=== PATIENT | female | born 1940 | race Caucasian/White ===

== ENCOUNTER 2016-08-22 15:03 | Emergency (ER) | payer MEDICARE ==
[~2016-08-22 15:03] MED LIST: ADV250INH IH; ALBU18HF INH; ALEN70TA2 PO; ASPI-973 PO; CALC-3 PO; HYDR25TA4 PO; LEVO112T4 PO; RANI300T4 PO; TIOT18CA3 IH; vit d PO
[2016-08-22 15:12] VITALS: BP 159/86; PULSE 77; RESP 20; O2SAT 97
--- NOTE | 2016-08-22 15:18 | ED.REPORT ---
HPI-Chest Pain 40 and Over Date of Service Aug 22, 2016 ED Provider: Estefanía Yee MD Patient is a 76 year old female with COPD who presents to the ED complaining of chest pain onset today when she was doing her hair a few hours ago. Her pain is sharp, midline, and exacerbated by R arm movement. Associated symptoms include L finger numbness. She denies SOB, nausea, fever, chills, cough, leg swelling, or any other symptoms. Nursing Notes Stated Complaint: CHEST PAIN Chief Complaint: Chest Pain Nursing Notes Reviewed: Yes Allergies: Coded Allergies: No Known Allergies (Unverified , 08/22/16) Scheduled ([vit d]) 2,000 MG PO DAILY Alendronate Sodium (Fosamax) 70 Mg Tablet 70 MG PO wkly Aspirin (Aspirin) 81 Mg Tablet 81 MG PO DAILY Calcium Carbonate/Vitamin D3 (Calcium 500+D Tablet Chew) 1 Each Tab.chew 1 EACH PO DAILY Fluticasone/Salmeterol (Advair 250-50 Diskus) 60 Puff/Inh Disk 1 PUFF IH BID Hydrochlorothiazide (Hydrochlorothiazide) 25 Mg Tablet 25 MG PO DAILY Levothyroxine (Levothyroxine) 112 Mcg Tablet 112 MCG PO DAILY Ranitidine (Ranitidine) 300 Mg Tablet 300 MG PO BID Tiotropium Conway (Spiriva) 18 Mcg Cap.w.dev 18 MCG IH DAILY Scheduled PRN Albuterol Sulfate (Ventolin HFA Inhaler) 200 Puff/18 Gm Inhaler 1 PUFF INH Q4 PRN PRN For Wheezing General Time Seen by MD: 15:17 Chief Complaint Chest pain Hx Obtained From: Patient Arrived By: Walk-in Sudden in Onset?: Yes Onset Occurred: 1 - 4 hours ago Symptom Duration: Since onset Similar Sx Previous: No Risk Factors )( CAD Risk Stratification SmokingNo Diabetes mellitus, No Hypertension, No Known CAD Risk factors reviewed )( TAD Risk Stratification No Hypertension, No Risk factors reviewed )( PE Risk Stratification No , No , No Previous DVT, No Previous PE, No Surgery Last 60 Days Risk factors reviewed Past Medical History Past Medical History diverticulitis hiatal hernia Reports: COPD, Denies: Hypertension Past Surgical History Spine surgery Smoking History Former Smoker Social History Other Social History: Review of Systems Constitutional: Denies: Chills, Fever Respiratory: Denies: Non-productive cough, Shortness of breath Cardiovascular: Reports: Chest pain, Denies: Edema GI: Denies: Nausea Musculoskeletal: Denies: Extremity swelling Neurologic: Reports: Numbness (L fingers ) Complete sys rev & neg: except as marked. Physical Exam Initial Vital Signs Vital Signs (First) Date Time Temp Pulse Resp B/P Pulse Ox O2 Delivery O2 Flow Rate FiO2 08/22/16 15:12 36.4 77 20 159/86 97 Room Air Initial VS: Reviewed, Vital signs abnormal Head / Eyes: Atraumatic, Normocephalic Skin: Warm, Dry Neurologic: Alert, Oriented, Nonfocal Psychiatric: Mood/affect normal, Behavior normal, Normal thought content General/Constitutional: Awake, Alert, Well developed Respiratory / Chest: No chest tenderness Wheezing / Retractions: Positive: Wheezing expiratory (Mild ) Decreased airation Cardiovascular: Heart rate NL, Regular rhythm, Peripheral circulation NL, Pulses = bilaterally Abdomen: Soft, Non-tender, No palpable mass Neck: No JVD Interpretation & Diagnostics Lab Results Interpretation Result Diagram: 08/22/16 1510 08/22/16 1510 Test 08/22/16 15:10 08/22/16 18:43 White Blood Count 5.9th/mm3 (3.8-10.1) Red Blood Count 5.06mil/mm3 (3.90-5.20) Hemoglobin 14.7g/dL (12.0-15.6) Hematocrit 44.7% (35.0-46.0) Mean Corpuscular Volume 88.3fL (81-100) Mean Corpuscular Hemoglobin 29.1pg (27.0-35.0) Mean Corpuscular Hemoglobin Concent 32.9% (32.0-37.0) Red Cell Distribution Width 12.9% (12.3-15.4) Platelet Count 430bil/L (150-400) Neutrophils (%) (Auto) 65.8% (40-74) Lymphocytes (%) (Auto) 17.5% (14-46) Monocytes (%) (Auto) 10.3% (4-12) Eosinophils (%) (Auto) 5.1% (0-5) Basophils (%) (Auto) 1.0% (0-3) Sodium Level 138mEq/L (134-144) Potassium Level 4.2mEq/L (3.5-5.2) Chloride Level 99mEq/L (97-108) Carbon Dioxide Level 25mmol/L (18-29) Blood Urea Nitrogen 16mg/dL (8-27) Creatinine 0.64mg/dL (0.57-1.00) Estimat Glomerular Filtration Rate 130mL/min (>59) Glucose Level 116mg/dL (60-99) Calcium Level 9.1mg/dL (8.5-10.1) Magnesium Level 2.0mg/dL (1.6-2.6) Total Bilirubin 0.2mg/dL (0.0-1.2) Aspartate Amino Transf (AST/SGOT) 21U/L (0-50) Alanine Aminotransferase (ALT/SGPT) 18U/L (0-32) Alkaline Phosphatase 72U/L (25-165) Total Protein 7.3g/dL (6.4-8.4) Albumin 4.2g/dL (3.4-5.0) Hold Matias Top Tube Received (Received) Troponin T < 0.010ug/L (0.0-0.011) ECG Interpretation ECG Interpretation: Sinus rate 73 normal intervals no acute ST,T changes PVC Time: 15:28 Interpreted by: ED physician X-Ray Chest Interpretation Chest Xray Interpretation: IMPRESSION: No acute pulmonary process. Dictated by: Katharina Zuniga M.D. on 08/22/2016 at 15:54 Approved by: Katharina Zuniga M.D. on 08/22/2016 at 15:56 View: Portable, 1 view Interpretation / Wet Read by: Interpret - Radiologist CT Chest Interpretation IMPRESSION: 1. No findings to suggest thoracic or abdominal aortic dissection. There is moderate thoracic and abdominal aortic atherosclerosis. 2. Lobulated pulmonary mass at the left lung base suspicious for neoplasm. Infection could also be considered in the appropriate differential. Of note, this may be amenable to percutaneous CT-guided biopsy; however the patient has severe centrilobular emphysema which markedly increases her risk of pneumothorax. This finding was discussed with the Pascale, the emergency room charge nurse at 5:05 PM on 08/22/16. 3. 4 mm and 6 mm right pulmonary nodules. Please see followup guidelines below. 4. Cholelithiasis. No findings to suggest choledocholithiasis or acute cholecystitis. 5. Bilateral intermediate density adrenal gland mass lesions. Differential considerations include neoplasm and atypical adrenal adenomas. Adrenal mass protocol CT or MRI is recommended to further characterize these findings. Fleischner Society criteria for SOLID lung nodule followup. Nodule size (mm)Low-risk patientHigh-risk [id number] follow-up neededFollow-up at 12 mo; if no change, no further follow-up>[id number] CT at 12 mo; if no change, no further follow-up needed.Initial follow-up CT at 6-12 mo, then 18-24 mo if no change. >6-8Initial follow-up CT at 6-12 mo, then 18-24 mo if no change. Initial follow-up CT at 3-6 mo, then 9-12 mo and 24 mo if no change. >8Follow-up CT at 3, 9, 24 mo. Or PET and/or biopsy.Same as for low-risk pts. Fleischner Society criteria for SUB-SOLID lung nodule followup. Solitary pure ground-glass nodules5 mm or lessNo followup needed. >5 mm3 mo follow-up CT to confirm persistence. Then annual CT for 3 years. Part-solid nodules3 mo follow-up CT to confirm persistence. If persistent with solid component <5 mm, annual CT for at least 3 years. If solid component is 5 mm or more, biopsy or surgical resection. Consider PET-CT for lesions > 10 mm. Multiple sub-solid nodulesPure ground glass nodules [address] at 2 and 4 years. Pure ground glass nodules >5 mm without dominant lesion. [address] to confirm persistence, then annual followup CT for at least 3 years. Dominant nodule(s) with part-solid or solid component. [address] to confirm persistence. If persistent, consider biopsy or surgical resection, donna if lesions have >5 mm solid component. Dictated by: Parris Mccloud M.D. on 08/22/2016 at 16:57 Approved by: Parris Mccloud M.D. on 08/22/2016 at 17:14 Study type: CT pulm angiogram Interpretation / Wet Read by: Interpret - Radiologist Re-Eval/Medical Decision Med Decision/Clinical Course The patient presents with atypical chest pain. Differential diagnoses considered were aortic dissection, coronary ischemia, pneumonia, esophageal spasm, and musculoskeletal pain. The patient's pain seemed to improve and her troponin remained negative. She has lung mass on CT. I explained her the need to follow-up and spoke with Dr. Felix was on-call for Dr. Sellers, they will make sure they follow up with the patient for further evaluation of the mass. Time of Eval: 17:58 Re-Evaluation/Progress Note: Rechecked patient. She is still having intermittent sharp chest pain. Discussed need for follow-up. Time of Eval: 19:38 Re-Evaluation/Progress Note: Discussed plan for discharge. Patient understands and agrees with plan. All questions addressed at this time. Consultation : Referral / Consult Name: Caryl Felix MD Call Returned at: 20:05 Note: Discussed patient's case with Dr. 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 Discussed need for follow up. Counseled Regarding: Diagnosis, Lab results, Need for follow-up, When/why to return to ED Discharge & Departure Primary Impression: Non-cardiac chest pain Additional Impression: Lung mass Disposition: Home Discharge Condition All VS Reviewed: Yes Condition: Improved Additional Instructions: Thank you for entrusting us with your care. Your lab results are reassuring. Follow up with your primary care provider to discuss the lung mass found upon imaging. Return to the emergency department if you experience shortness of breath, severe chest pain, or any new or worsening symptoms. Referrals: Mesfin Sellers MD (PCP) Scribe Attestation Portions of this note were transcribed by Teodoro Oates. I, Dr. Yee personally performed the history, physical exam and medical decision-making; I reviewed and confirmed the accuracy of the information in the transcribed note. Signed by: Teodoro Oates 08/22/16 193 copies to: Mesfin Sellers MD, Jena M MD Aug 22, 2016 15:18 TEODORO OATES Aug 22, 2016 15:30
[2016-08-22 15:19] LABS: EOSINOPHILS % (AUTO) 5.1 % (0-5); MONOCYTES % (AUTO) 10.3 % (4-12); Mean Corpuscular Hemoglobin 29.1 pg (27.0-35.0); Mean Corpuscular Volume 88.3 fL (81-100); NEUTROPHILS % (AUTO) 65.8 % (40-74); Platelet Count 430 bil/L (150-400)
[2016-08-22] MEDS ORDERED: HYDROmorphone 0.5 mg/0.5 mL iSecure Syringe IVPUSH ONE (15:30)
--- NOTE | 2016-08-22 15:57 | DRSVH ---
PROCEDURE: X-RAY CHEST ONE VIEW, PORTABLE ([id number]) INDICATIONS: cp TECHNIQUE: One view of the chest was acquired. COMPARISON: [facility], , CHEST 2VW, 04/01/2012, 11:57. FINDINGS: Surgical changes and devices: None. Lungs and pleura: No pleural effusions or pneumothorax. Lungs are clear. Mediastinum: Mediastinal contours appear normal. Heart size is normal. Bones and chest wall: No suspicious bony lesions. Overlying soft tissues appear unremarkable. IMPRESSION: No acute pulmonary process. Dictated by: Katharina Zuniga M.D. on 08/22/2016 at 15:54 Approved by: Katharina Zuniga M.D. on 08/22/2016 at 15:56
[2016-08-22 16:02] LABS: TROPONIN T < 0.010 ug/L (0.0-0.011)
[2016-08-22 16:08] VITALS: BP 126/66; PULSE 67; RESP 16; O2SAT 97
--- NOTE | 2016-08-22 17:16 | DRSVH ---
PROCEDURE: CT ANG CHEST/ABD W/WO CONTRAST ([id number]) INDICATIONS: sharp chest pain TECHNIQUE: Precontrast 5 mm thick sections acquired from the lung apices to the iliac crests. After the adminis tration of intravenous contrast, 3 mm thick sections again acquired from the lung apices to the iliac crests. 3-dimensional maximum intensity projection (MIP) oblique sagittal and coronal reformats wer e then acquired, and/or 3-dimensional volume rendering reformats. For radiation dose reduction, the following was used: automated exposure control. COMPARISON: [facility], CT, CHEST W/O CONTRAST, 03/05/2012, 16:12. FINDINGS: Image quality: Excellent. AORTA: Scattered atheromatous calcifications are present at the aortic arch. No dilatation of the ao rtic root. No ulceration or aneurysmal dilatation. No aortic dissection. No intramural hematoma. The descending thoracic aorta demonstrates normal course and caliber. CHEST: Lungs and pleura: There is severe centrilobular emphysema with an apical predominance. A 4 mm diamete r pulmonary nodule is present within the posterior aspect of the right upper lobe (series 7, image 22 ). A 6 mm diameter pulmonary nodule is present within the base of the right middle lobe (series 7, im age 74). A 2.5 x 2.1 x 3.0 cm lobulated mass is present at the left lung base (series 7, image 74). N o pleural effusion or pneumothorax. Mediastinum: Heart size is normal. No pericardial effusion. No mediastinal or hilar adenopathy by size criteria. Central pulmonary arteries are normal in size. Esophagus is normal in caliber. No h iatal hernias. Bones and chest wall: No axillary adenopathy by size criteria. Thyroid gland is unremarkable. No s uspicious bony lesions. No vertebral body compression fractures. 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 There is conventi onal hepatic arterial anatomy. The SMA is widely patent. The bilateral renal arteries are widely [place] nt. The LEO is patent. Scattered atheromatous calcifications are present throughout the abdominal aor ta and the proximal common iliac arteries. No aneurysmal dilatation or stenosis. Solid organs: Liver and spleen are normal in size. The gallbladder is partially filled with sludge a nd subcentimeter cholesterol stones. No gallbladder wall thickening or pericholecystic fluid. Biliary system is non dilated. Pancreas enhances normally. There is an intermediate density 2.3 x 4.0 cm le ft adrenal mass an intermediate density 1.9 x 1.2 cm right adrenal mass. Both kidneys are normal in s ize and enhancement, without hydronephrosis. Peritoneum and bowel: No free fluid or air. Bowel loops are normal in caliber and wall thickness. Nodes and vessels: No retroperitoneal or mesenteric adenopathy by size criteria. Inferior vena cava is normal in morphology. Bones: No suspicious bony lesions. No vertebral body compression fractures. Severe degenerative ch anges are present throughout the thoracolumbar spine. A severe wedge compression deformity is present at T12 this is unchanged from prior studies. Miscellaneous: No ventral hernias. IMPRESSION: 1. No findings to suggest thoracic or abdominal aortic dissection. There is moderate thoracic and abd ominal aortic atherosclerosis. 2. Lobulated pulmonary mass at the left lung base suspicious for neoplasm. Infection could also be co nsidered in the appropriate differential. Of note, this may be amenable to percutaneous CT-guided bio psy; however the patient has severe centrilobular emphysema which markedly increases her risk of pneu mothorax. This finding was discussed with the Pascale, the emergency room charge nurse at 5:05 PM on 08/22/16. 3. 4 mm and 6 mm right pulmonary nodules. Please see followup guidelines below. 4. Cholelithiasis. No findings to suggest choledocholithiasis or acute cholecystitis. 5. Bilateral intermediate density adrenal gland mass lesions. Differential considerations include catalina plasm and atypical adrenal adenomas. Adrenal mass protocol CT or MRI is recommended to further charac terize these findings. Fleischner Society criteria for SOLID lung nodule followup. Nodule size (mm)Low-risk patientHigh-risk [id number] follow-up neededFollow-up at 12 mo; if no aguayo e, no further follow-up>[id number] CT at 12 mo; if no change, no further follow-up needed.Initial f ollow-up CT at 6-12 mo, then 18-24 mo if no change. >6-8Initial follow-up CT at 6-12 mo, then 18-24 mo if no change. Initial follow-up CT at 3-6 mo, then 9-12 mo and 24 mo if no change. >8Follow-up CT at 3, 9, 24 mo. Or PET and/or biopsy.Same as for low-risk pts. Fleischner Society criteria for SUB-SOLID lung nodule followup. Solitary pure ground-glass nodules5 mm or lessNo followup needed. >5 mm3 mo follow-up CT to confirm persistence. Then annual CT for 3 years. Part-solid nodules3 mo follow-up CT to confirm persistence . If persistent with solid component <5 mm, annual CT for at least 3 years. If solid component is 5 mm or more, biopsy or surgical resection. Consider PET-CT for lesions > 10 mm. Multiple sub-solid nodulesPure ground glass nodules [address] at 2 and 4 years. Pure ground glass nodules >5 mm without dominant lesion. [address] to confirm persistence, then annual followup CT for at least 3 years. Dominant nodule(s) with part-solid or solid component. [address] to confirm persistence. If persistent, consider biopsy or surgical resection, donna if lesions have >5 m m solid component. Dictated by: Parris Mccloud M.D. on 08/22/2016 at 16:57 Approved by: Parris Mccloud M.D. on 08/22/2016 at 17:14
[2016-08-22 19:16] VITALS: BP 144/79; PULSE 76; RESP 12; O2SAT 95
[2016-08-22 19:47] VITALS: BP 144/79; PULSE 76; RESP 12; O2SAT 95
== END 2016-08-22 19:50 | disposition home or self-care (01) ==
LOC: SED 15:03
DX: R07.89 Other chest pain (principal); R91.8 Other nonspecific abnormal finding of lung field; R20.0 Anesthesia of skin; J44.9 Chronic obstructive pulmonary disease, unspecified; I10 Essential (primary) hypertension; Z79.82 Long term (current) use of aspirin; Z87.891 Personal history of nicotine dependence
CPT/HCPCS: 36415; 71010; 71275; 74175; 80053; 83735; 84484; 85025; 93005; 96374; 99285; J1170; Q9967

== ENCOUNTER 2016-09-25 20:07 | Inpatient (IN) | payer MEDICARE ==
[~2016-09-25] VITALS: Ht 154.9 cm; Wt 58.7 kg
[2016-09-25 20:10] VITALS: BP 141/72; PULSE 75; RESP 15; O2SAT 94
[2016-09-25] MEDS ORDERED: 0.9% Sodium Chloride 1,000 ML IV ONE ×2 (20:22→21:02)
[2016-09-25] MEDS ORDERED: Vancomycin Dose per Pharmacist XX ONE (20:25)
[2016-09-25] MEDS ORDERED: levoFLOXacin Inj 750 MG in IV Premix 1 EACH IV ONE (20:25)
[2016-09-25] MEDS ORDERED: Piperacillin-Tazo 3.375 Gm Inj 3.375 GM in Dextrose 5% Minibag Plus 50 ML IV ONE (20:25)
[2016-09-25] MEDS ORDERED: Vancomycin Inj 1,250 MG in 0.9% Sodium Chloride 250 ML IV ONE (20:30)
--- NOTE | 2016-09-25 20:33 | ED.REPORT ---
HPI-General Illness Date of Service Sep 25, 2016 ED Provider: Zachary Shaikh MD The patient is a 76 year female was sent over from urgent care where she presented with left-sided upper abdominal pain/chest pain. A CT abdomen/pelvis was obtained that demonstrated a left pulmonary abscess confirmed by chest x- ray. She was aware of this mass and had a PET scan taken 1 week ago. The patient was noted to be febrile with a leukocytosis of 20. The initial plan was for direct admission, however the hospitalist requested further evaluation in the ED. She has also experienced shortness of breath and a cough. She denies recent weight loss. She denies history of cardiac disease or cancer. Nursing Notes Stated Complaint: ABDOMINAL PAIN Chief Complaint: Female Abdominal Pain Nursing Notes Reviewed: Yes Allergies: Coded Allergies: No Known Allergies (Unverified , 08/22/16) Scheduled Alendronate Sodium (Fosamax) 70 Mg Tablet 70 MG PO WEEKLY SUNDAYS Aspirin (Aspirin) 81 Mg Tablet 81 MG PO QAM Cholecalciferol (Vitamin D3) (Vitamin D3) 2,000 Unit Tablet 2,000 UNIT PO QAM Fluticasone/Salmeterol (Advair 250-50 Diskus) 60 Puff/Inh Disk 1 PUFF IH BID Hydrochlorothiazide (Hydrochlorothiazide) 25 Mg Tablet 25 MG PO QAM Levothyroxine (Levothyroxine) 112 Mcg Tablet 112 MCG PO QAM Tiotropium [place] (Spiriva) 18 Mcg Cap.w.dev 18 MCG IH QAM Scheduled PRN Albuterol Sulfate (Ventolin HFA Inhaler) 200 Puff/18 Gm Inhaler 1 PUFF INH Q4 PRN PRN For Wheezing Calcium Carbonate (Tums) 500 Mg Tab.chew 500 MG PO TID PRN PRN For Dyspepsia or Heartburn Ibuprofen (Ibuprofen) 200 Mg Capsule 200-400 MG PO QID PRN PRN For Pain General Time Seen by MD: 20:20 Chief Complaint Abdominal pain Hx Obtained From: Patient Arrived By: Walk-in Sudden in Onset?: No Onset Occurred: 3 days ago Symptom Duration: Since onset Location: : Abdomen Quality: Painful Severity: Current: Moderate Severity: Maximum: Severe Recent Healthcare: No recent hospitalization, Recent doctor visit Similar Sx Previous: No Past Medical History Past Medical History Diverticulitis Hiatal hernia Reports: COPD Past Surgical History Spine surgery Family History Noncontributory Smoking History Former Smoker Social History Other Social History: , Local resident Ambulatory Status Independent Review of Systems Full Review of Systems Constitutional: Denies: Recent wt loss Respiratory: Reports: Prod cough, clear, Shortness of breath Cardiovascular: Reports: Chest pain GI: Reports: Abdominal pain Complete sys rev & neg: except as marked. Physical Exam Vital Signs Vital Signs Date Time Temp Pulse Resp B/P Pulse Ox O2 Delivery O2 Flow Rate FiO2 09/25/16 21:06 81 16 98 Nasal Cannula 2 09/25/16 20:10 36.1 75 15 141/72 94 Room Air Initial VS: Reviewed Head / Eyes: Atraumatic, Normocephalic, PERRL ENT: Mucous membranes moist, Conjunctiva normal, No scleral icterus Neck: Supple, Non-tender, Full range of motion Cardiovascular: Regular rate & rhythm, Heart sounds normal, Intact distal pulses Abdomen / GI: Soft, Non-tender, No guarding, No rebound, No distention Lymphatic: No lymphadenopathy Extremities: Vascular intact, Neuro intact, No swelling, No tenderness Skin: Warm, Dry, No cyanosis Neurologic: Alert, Oriented, Nonfocal Psychiatric: Mood/affect normal, Behavior normal, Normal thought content General/Constitutional: Awake, Alert, Cooperative Diminished Breath Sounds: Positive: Decreased bilateral Most diminished in the left lung base with crackles present. She is sating at 96 % on 2 L by nasal cannula. She has a moist hacking cough. Upper Extremities Upper Extremity / MS: Neurologic intact, Vascular intact No calf swelling or tenderness Interpretation & Diagnostics Lab Results Interpretation Result Diagram: 09/25/16203909/25/162039 Test 09/25/16 20:40 09/25/16 21:21 09/25/16 21:45 White Blood Count 23.4th/mm3 (3.8-10.1) Red Blood Count 4.60mil/mm3 (3.90-5.20) Hemoglobin 12.9g/dL (12.0-15.6) Hematocrit 40.2% (35.0-46.0) Mean Corpuscular Volume 87.4fL (81-100) Mean Corpuscular Hemoglobin 28.0pg (27.0-35.0) Mean Corpuscular Hemoglobin Concent 32.1% (32.0-37.0) Red Cell Distribution Width 12.9% (12.3-15.4) Platelet Count 643bil/L (150-400) Neutrophils (%) (Auto) 89.2% (40-74) Lymphocytes (%) (Auto) 2.9% (14-46) Monocytes (%) (Auto) 7.2% (4-12) Eosinophils (%) (Auto) 0% (0-5) Basophils (%) (Auto) 0.2% (0-3) Sodium Level 136mEq/L (134-144) Potassium Level 4.3mEq/L (3.5-5.2) Chloride Level 99mEq/L (97-108) Carbon Dioxide Level 20mmol/L (18-29) Blood Urea Nitrogen 17mg/dL (8-27) Creatinine 1.25mg/dL (0.57-1.00) Estimat Glomerular Filtration Rate 60mL/min (>59) Glucose Level 86mg/dL (60-99) Lactic Acid Level 1.1mmol/L (0.4-2.0) Calcium Level 10.1mg/dL (8.5-10.1) Total Bilirubin 0.3mg/dL (0.0-1.2) Aspartate Amino Transf (AST/SGOT) 16U/L (0-50) Alanine Aminotransferase (ALT/SGPT) 12U/L (0-32) Alkaline Phosphatase 50U/L (25-165) Troponin T 0.010ug/L (0.0-0.011) Total Protein 7.3g/dL (6.4-8.4) Albumin 4.5g/dL (3.4-5.0) Procalcitonin 0.26ng/mL (0.00-0.08) Prothrombin Time 11.4sec (8.1-12.5) Prothromb Time International Ratio 1.06ratio Urine Color Straw (YELLOW) Urine Appearance Clear (CLEAR,HAZY) Urine pH 7.5 (5.0-8.0) Urine Specific [place] 1.005 (1.003-1.035) Urine Protein Negativemg/dL (NEG,TRACE) Urine Glucose (UA) Negativemg/dL (NEGATIVE) Urine Ketones 15mg/dL (NEGATIVE) Urine Occult Blood Large (NEGATIVE) Urine Nitrite Negative (NEGATIVE) Urine Bilirubin Negative (NEGATIVE) Urine Urobilinogen Normalmg/dL (NORMAL) Urine Leukocyte Esterase Small (NEGATIVE) Urine RBC 3-10/hpf (0-2) Urine WBC 6-10/hpf (0-5) Urine Epithelial Cells Many/hpf (NONE-MOD) Urine Crystals None seen (NONE SEEN) Urine Bacteria None/hpf (NONE-FEW) Urine Hyaline Casts None/lpf (NONE) Urine Granular Casts None seen (NONE SEEN) Urine Waxy Casts None seen (NONE SEEN) Urine Red Blood Cell Casts None seen (NONE SEEN) Urine White Blood Cell Casts None seen (NONE SEEN) Urine Mucus None seen (None Seen) Urine Trichomonas None seen (NONE SEEN) Urine Yeast None (NONE SEEN) Urine Culture Reflexed Indicated X-Ray Chest Interpretation Chest Xray Interpretation: FROM URGENT CARE IMPRESSION: 1. Posterior left lung base opacity corresponds with CT findings of pneumonia with lung abscess. 2. Nonacute T12 vertebral body anterior wedge compression fracture as before. Dictated by: Johnny Bañuelos M.D. on 09/25/2016 at 19:02 Interpretation / Wet Read by: Interpret - Radiologist CT Abd / Pelvis Interpretation FROM URGENT CARE IMPRESSION: 1. Continued interval enlargement of previously noted posterior left lower lobe mass lesion with cystic center, at a rate greater than expected for typical neoplasm. In the setting of fevers, finding is therefore suspicious for pneumonia with lung abscess formation. 2. Bilateral adrenal adenomas as before, larger on the left. 3. Large retrocardiac hiatal hernia. 4. 3.8 cm calcified left uterine fibroid. 5. Nonacute T12 vertebral body anterior wedge compression fracture as before. Dictated by: Johnny Bañuelos M.D. on 09/25/2016 at 17:57 Interpretation / Wet Read by: Interpret - Radiologist Re-Eval/Medical Decision Med Decision/Clinical Course The patient is a 76 year female was sent over from urgent care where she presented with left-sided upper abdominal pain/chest pain. A CT abdomen/pelvis was obtained that demonstrated a left pulmonary abscess confirmed by chest x- ray. She was aware of this mass and had a PET scan taken 1 week ago and was previously being worked up for malignancy until today at which time her clinical picture came more consistent with abscess. The patient was noted to be febrile with a leukocytosis of 20. The initial plan was for direct admission, however the hospitalist requested further evaluation in the ED. She has also experienced shortness of breath and a cough. She denies recent weight loss. She denies history of cardiac disease or cancer. Here in the emergency department the patient is requiring 2-4 L of supplemental oxygen by nasal cannula. She is afebrile after receiving ibuprofen at urgent care and is hemodynamically stable. I reviewed the patient's CT scan of the abdomen obtained earlier today at urgent care as below: IMPRESSION: 1. Continued interval enlargement of previously noted posterior left lower lobe mass lesion with cystic center, at a rate greater than expected for typical neoplasm. In the setting of fevers, finding is therefore suspicious for pneumonia with lung abscess formation. 2. Bilateral adrenal adenomas as before, larger on the left. 3. Large retrocardiac hiatal hernia. 4. 3.8 cm calcified left uterine fibroid. 5. Nonacute T12 vertebral body anterior wedge compression fracture as before. CXR: 1. Posterior left lung base opacity corresponds with CT findings of pneumonia with lung abscess. 2. Nonacute T12 vertebral body anterior wedge compression fracture as before. LABS: leukocytosis 23.4, CBC otherwise unremarkable, creatinine elevated at 1.25 , CMP otherwise unremarkable, lactate 1.1, procalcitonin 0.26, coags nl, UA equivocal for UTI - sent for culture 2 sets of blood cultures were obtained and the patient was started on broad- spectrum antibiotics with IV Zosyn, vancomycin and ceftriaxone. He should have quite a bit of wheezing and poor air movement throughout both lung cook consistent with COPD exacerbation and was treated with 2 [id number] DuoNeb. She reported subjective improvement. Patient has been admitted to the hospitalist service for further workup and management of her pulmonary abscess. She remains nontoxic in appearance at this time was transferred in stable condition. The patient will need a dedicated CT scan of the chest to further characterize the pulmonary abscess however given her acute kidney injury and having already received a contrast load earlier today we have opted to defer this study for the moment. Source of Hx: Old records Time of Eval: 21:30 Re-Evaluation/Progress Note: Discussed plan for admission. Consultation : Referral / Consult Name: Keely Abdi DO Consulted With: Hospitalist Call Returned at: 21:49 Seat Joiner: Will see patient, Agrees with eval, Agrees with plan, Accepts admit Counseled Regarding: Diagnosis, Lab results, Need for admission Discharge & Departure Primary Impression: Pulmonary abscess Pulmonary abscess pneumonia presence: with pneumonia Laterality: left Lung location: unspecified part of lung Qualified Code: J85.1 - Abscess of lung with pneumonia Additional Impressions: COPD exacerbation Hypoxia Leukocytosis Leukocytosis type: unspecified Qualified Code: D72.829 - Elevated white blood cell count, unspecified Acute kidney injury Disposition: ADMITTED TO HOSPITAL Discharge Condition All VS Reviewed: Yes Condition: Stable Referrals: Mesfin Sellers MD (PCP) Crit Care Except Billable Proc Time Spent: 105-134 minutes Services Performed: Patient management by me, Time spent at bedside, Reviewing test results, Reviewing imaging, Discussing patient care, Documentation in record, Time with fam/surrogate Scribe Attestation Portions of this note were transcribed by Carolyn Cooley. I, Dr. Shaikh personally performed the history, physical exam and medical decision-making; I reviewed and confirmed the accuracy of the information in the transcribed note. Signed by: Yu Fernandez, 09/25/2016 at 2300. copies to: Mesfin Sellers MD, Beck O MD Sep 25, 2016 20:33 Carolyn Cooely Sep 25, 2016 20:39
[2016-09-25] MEDS ORDERED: Albuterol-Ipratropium 3 mL Inhalation Solution NEB ONE ×2 (20:45→21:05)
[2016-09-25] MEDS ORDERED: Ondansetron 2 mg/mL 2 mL Inj IVPUSH PRN (21:05)
[2016-09-25 21:06] VITALS: PULSE 81; RESP 16; O2SAT 98
[2016-09-25 21:15] LABS: BASOPHILS % (AUTO) 0.2 % (0-3); EOSINOPHILS % (AUTO) 0 % (0-5); MONOCYTES % (AUTO) 7.2 % (4-12); Mean Corpuscular Volume 87.4 fL (81-100); NEUTROPHILS % (AUTO) 89.2 % (40-74); Platelet Count 643 bil/L (150-400)
[2016-09-25] MEDS ORDERED: CHOL200025 PO (21:18)
[2016-09-25] MEDS ORDERED: IBUP200C PO (21:19)
[2016-09-25] MEDS ORDERED: CALC500T9 PO (21:19)
[2016-09-25] MEDS ORDERED: HYDROmorphone 0.5 mg/0.5 mL iSecure Syringe IVPUSH ONE (21:35)
[2016-09-25 21:40] LABS: TROPONIN T 0.01 ug/L (0.0-0.011)
[2016-09-25 21:46] LABS: INR 1.06 ratio
[2016-09-25 22:04] VITALS: BP 135/54; PULSE 81; RESP 24; O2SAT 93
[2016-09-25 22:11] LABS: APPEARANCE,URINE CLEAR (CLEAR,HAZY); COLOR,URINE STRAW (YELLOW); OCCULT BLOOD,URINE LARGE (NEGATIVE); PH,URINE 7.5 (5.0-8.0); UROBILINOGEN,URINE NORMAL (NORMAL)
[2016-09-25 22:15] VITALS: BP 135/54; PULSE 78; RESP 24; O2SAT 92
[2016-09-25 22:50] VITALS: BP 154/78; PULSE 94; RESP 18; O2SAT 97
--- NOTE | 2016-09-25 22:50 | NUR ---
Admit Patient transferred to unit from ED. A&O, oriented to room and call light. Patient denies CP, SOB, and abdominal pain at this time.
[2016-09-26] VITALS (7 sets, daily range): BP systolic 111–129; BP diastolic 59–63; PULSE 74–83; RESP 14–20; O2SAT 91–97
[2016-09-26] MEDS ORDERED: Albuterol 2.5 mg/3 mL Inhalation Solution NEB PRN (00:45)
--- NOTE | 2016-09-26 00:49 | PCM.HPMED ---
Subjective Date of Service Sep 25, 2016 Primary Provider: Admitting Physician: Keely Abdi DO Primary Care Physician: Mesfin Sellers MD Attending Physician: Keely Abdi DO Admit Status: From the Emergency Department Chief Complaint: Abdominal pain, LUQ History of Present Illness: Ms. Ward is a pleasant 76 year old woman with history of COPD, HTN, and osteoporosis, that presented to [facility] via urgent care for symptoms of abdominal pain. Stat CT abd was unrevealing for abdominal causes, but revealed an increasing in size of LLL pulmonary mass, suspicious for developing abscess. She was admitted for evaluation and treatment of pulmonary abscess. Hospital day one. She initially presented to urgent care with a one week history of abdominal pain , located within her LUQ. Pain is sharp, intermittent, worsens with movement and deep inspiration. She cannot correlate any worsening or improvement in symptoms with intake or bowel movements. Denies any associated fever, chills, nausea, vomiting, dysuria, hematuria, edema, headache, unintentional weight loss or weight gain, shortness of breath. She admits to associated fatigue, which she describes as quite severe compared to her baseline activity, as she shares that she can often only participate in activity for about an hour, and then she feels 'wiped.' No acute vision changes, dizziness, unsteady gait. She denies any recent sick contacts, denies any recent illness herself, including any recent flu-like illness or bacterial infections. She states she does have history of PNA, but the episodes were > 1 year ago. She states that she has not traveled out of [facility] within the recent years, and has not traveled to [place] or [facility]. She has not served in the , and denies any known exposure to TB. Denies any family history of similar, family history of TB. She stopped smoking approximately 3 months ago, with a 50 year history of 0.5ppd. Denies daily/chronic EtOH intake, denies any other substance use. Denies any exposures to asbestos, silicone, construction, but does share she moved into a new manufactured home recently. She does not wear O2 at home. She has a significant family history for breast cancer, with both mother and sister affected. Recent CTA for sharp chest pain 08/22/2016 revealed a lobulated pulmonary mass at left lung base, measuring 4.9x3.4cm, in the presence of severe centrilobular emphysema. Abd CT that was obtained day of this admission 09/25, revealed the LLL mass had increased in size during this interval, measuring 6.3 x 4.6cm with central hypoenhancing region 4.5x4.0cm. In the ED, T36.1, P75, R 15, BP 141/72, 94% room air; initial labs revealed WBC 23.4 with 89 neut, plt 643; Cr 1.25, LFTs within range, PCT 0.26; UA showed large occult blood, many epi cells; blood cultures and urine cultures obtained. 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 Hx Alcohol Use: No Hx Substance Use: No Hx Tobacco Use: Yes (quit 3mo ago; 0.5ppd x50y) Smoking Status: Former Smoker Living Arrangement: with Family (Local with ) Exam Vital Signs Vital Sign - Last Date Time Temp Pulse Resp B/P Pulse Ox O2 Delivery O2 Flow Rate FiO2 09/25/16 22:50 36.9 94 18 154/78 97 Room Air 09/25/16 21:06 2 Exam General: AAOx3; pleasant and cooperative, resting in bed HEENT: Atraumatic; sclera anicteric; mucus membranes moist; EOMI Neck: No palpable nodes, full ROM, no pain chin to chest Cardiac: RRR, no appreciable murmurs Abdomen: Soft, pain LUQ but does not increase with deeper palpation; no suprapubic tenderness Skin: Warm and dry Extremities: No peripheral edema noted; 5/5 strength 4/4 extremities Pulses: radial equal and bilateral; posterior tibialis equal and bilateral Neuro: CNII-XII grossly intact; speech without slur; facial expressions equal and symmetric Psych: Appropriate mood, affect, and responses to questioning; good insight and judgment Lab and Diagnostics Result Diagram: 09/25/16203909/25/162039 Assessment & Plan Ms. Ward is a pleasant 76 year old woman with history of COPD, HTN, and osteoporosis, that presented to [facility] via urgent care for symptoms of abdominal pain. Stat CT abd was unrevealing for abdominal causes, but revealed an increasing in size of LLL pulmonary mass, suspicious for developing abscess. She was admitted for evaluation and treatment of pulmonary abscess. Hospital day one. Suspected pulmonary abscess, acute, present on admission. Under evaluation - CT 09/25/2016 revealed an increasing mass within LLL suspicious for abscess development - Await results blood culture and urine culture - Consider consult of pulmonary and ID teams in am; these orders have not been placed, as contact with these teams has not yet been established - Will likely require needle drainage; this was mentioned in CT report taken in 08/2016, and there was high concern for her existing COPD and risk of pneumothorax - MRSA swab - Continue broad coverage, zosyn + MRSA coverage; change vanco to linezolid for reduced kidney impairment, as she is not on SSRIs - AM labs: counts + PCT - Strep pneu Ur, Legionella Ur - Sputum samples - Specialized studies: Crypto, TB, galactomannan - CT chest with contrast held secondary to CORIN; consider re-eval in am if kidney function improves Acute abdominal pain, present on admission. Currently controlled - Pt reports one week history; no changes in bowel or bladder habits - CT on admit did not identify any GI etiology - Likely secondary to LLL abscess formation - PRN Dilaudid IV for overnight relief Acute kidney injury, present on admission. Monitored - On admit: Cr 1.25; previous 0.64 in 08/2016 - Received contrast for CT + vanco + zosyn - Monitor COPD with emphysematous changes. Presumed stable - No history chronic oxygen therapy; sx well controlled on home inhalers - Duonebs QIDWA + accunebs q2h prn - DVT: Hep q8 - GI: H2B - Diet: General - PRN: Pain/fever/antiemetic/bowel - Code: Full code Patient status: Due to severity of presenting symptoms, risk of adverse events, and likely course of care, anticipated LOS > 2 midnights; admitted as INPT Pain Evaluation: Adequate Pain Control GI Prophylaxis: H2 jesus VTE Prophylaxis: Sub-Q Heparin (Unfractionated) Resuscitation Status: CPR: Attempt Resuscitation Attending Statement The patient was seen and examined together with house staff on 09/26/2016 and I agree with the history, exam and plan as outlined in the note above. Florence Cloud DO Sep 25, 2016 23:46 Keely Abdi DO Sep 26, 2016 03:48
[2016-09-26] MEDS: Albuterol-Ipratropium 3 mL Inhalation Solution NEB SCH ×4 (06:00→20:04)
[2016-09-26 06:16] LABS: BASOPHILS % (AUTO) 0.2 % (0-3); EOSINOPHILS % (AUTO) 0.1 % (0-5); Mean Corpuscular Hemoglobin 28.6 pg (27.0-35.0); Mean Corpuscular Volume 87.9 fL (81-100); NEUTROPHILS % (AUTO) 86.2 % (40-74); Platelet Count 592 bil/L (150-400)
[2016-09-26 06:39] LABS: Magnesium 2.1 mg/dL (1.6-2.6); Phosphorus 2.9 mg/dL (2.5-4.9)
[2016-09-26] MEDS ORDERED: Piperacillin-Tazo 3.375 Gm Inj 3.375 GM in Dextrose 5% Minibag Plus 50 ML IV SCH (08:30)
[2016-09-26] MEDS: Linezolid Inj 600 MG in IV Premix 1 EACH IV SCH ×2 (10:41→21:02)
[2016-09-26] MEDS: HYDROmorphone 0.5 mg/0.5 mL iSecure Syringe IVPUSH PRN ×4 (10:41→22:19)
--- NOTE | 2016-09-26 11:39 | NUR ---
Social Work-initial assessment: Data: EMR reviewed. Pt is a 76 y/o female who was admitted for pulmonary abscess and COPD exacerbation per H&P. Pt's insurance is [facility] Medicare and PCP is Mesfin Sellers MD. Pt does not have [facility] insurance or VA benefits. Pt has no history of HH or SNF services. SW met with Pt and explained role. Pt resides at home with her where she remains independent. Pt drives and does not use any DME. SW discussed DPOA/ advanced directive, SW confirmed with pt that this has been completed. Pt's to provide transport home at discharge. SW provided phone number and plan on white board in room. No anticipated discharge needs. SW will continue to follow if needs arise. Assessment:Pt who is independent at baseline. Plan:Pt to discharge home when medically stable via POV. No anticipated discharge needs. SW will continue to follow if needs arise. CHON Cervantes
--- NOTE | 2016-09-26 16:06 | NUR ---
Risk for falls P: Patient state "I feel so fatigued". I: Reviewed the falls risk policy. Suggested use of yellow skid socks. Encouraged patient to call for assistance anytime she feels dizzy or weak. E:Continue to reassess patient, and her needs when it comes to ambulation and assistance with activities of daily living. S: Hourly rounding, assist patient upon request, call light within reach, personal belongings within reach. Bed locked and in low position.
--- NOTE | 2016-09-26 17:09 | NUR ---
Pain Pt reports pain at 7-8/10 intermittently throughout shift. IVP Dilaudid administered Adequate relief. Pt found sleeping during reassessments. VSS Bed down and locked, call light w/in reach
--- NOTE | 2016-09-26 20:03 | CONS ---
[address] [address] CONSULTATION REPORT PATIENT: HERBERT GARCIA : 1940 MR#: [id number] ADMIT: 09/25/2016 JOB ID: [id number] DATE OF SERVICE: 09/26/[address] Queen for this consult. REASON FOR CONSULTATION: Lung abscess versus pulmonary malignancy. HISTORY OF PRESENT ILLNESS: The patient is a 76-year-old woman in generally reasonably good health though she does suffer from COPD, hypertension and osteoporosis. She reports that she was in her usual state of pretty good health until early 2016, probably around July, when she began to notice the insidious onset of left chest pain as well as progressive fatigue. There was little in the way of fever, chills and sweats initially, though she does report that at times she felt a little to warm or a little to cool and those symptoms seemed to start at roughly the same time as the nagging left chest pain and malaise. Eventually, these findings eventually led her to get an x-ray which was normal and was followed by a CT chest and abdomen. This showed a lobulated pulmonary mass at the left base. It was considered quite possibly neoplastic. That lobulated mass was 2.5 x 3 cm and located at the left lung base. Also noted was very severe emphysema. Some smaller right pulmonary nodules were noted and these were only 4 and 6 mm. This led to a workup which included, among other things, a PET scan which showed uptake in the left lower lobe consistent with but not diagnostic of lung cancer. Also noted was hepatomegaly. The patient was in the process of a continued workup for this left-sided lobulated pulmonary mass when she developed increasing left upper quadrant pain over the past few days in association with continuation of the malaise, the intermittent subjective fevers and chills and a nonproductive cough. The left upper quadrant pain was evaluated in Urgent Care, and she was subsequently sent to the emergency department where another CT of the abdomen and lower chest was performed. This showed considerable enlargement of the left lower lobe mass which is now all the way up to 6.3 x 4.6 cm with a central hypoenhancing area. The remainder of the CT scan of the abdomen was largely unremarkable except for the presence of a previously known large hiatal hernia and bilateral adrenal masses which are felt to be benign. The patient was admitted to this facility yesterday for continued evaluation of this rapidly enlarging left lower lobe lobulated mass with a hypodense center. The prevailing thought has been that this likely is an abscess because it is growing so rapidly over the past couple of months, and the patient has been started on antibiotics. ID consultation is requested regarding antibiotic management of what may be a lung abscess. The patient notes that she has relatively few constitutional symptoms. She states that since early this year, she has felt a little too warm or a little too cold at times, but does not have overt fevers, rigors or drenching sweats. She lost a few pounds early on in this illness but has stopped losing weight. She has minimal cough which is not productive of any significant sputum nor blood. She has not had much in the way of abdominal symptoms except for what she terms left upper quadrant pain which is almost certainly referred pain from her lungs. PAST MEDICAL HISTORY: 1. COPD. 2. Hypertension. 3. Osteoporosis. 4. GERD. 5. Hypothyroidism. 6. Bilateral adrenal masses. 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 She is a long-time smoker for 50 years of relatively low-dose cigarette smoking about one-half pack per day. She does not consume significant alcohol nor does she do illicit drugs. She has not lived overseas. FAMILY HISTORY: Negative for any known 1st or second-degree relatives with tuberculosis. REVIEW OF SYSTEMS: Was done. The patient has an occasional headache but not of any significant proportion. She denies sinus complaints. No new visual complaints. No sore throat, odynophagia, dysphagia. She has a minimally productive cough and some minimal shortness of breath which sounds to be relatively chronic. No hemoptysis. No pleuritic chest pain, interestingly. She does have the persistent left upper quadrant pain without nausea, vomiting, or diarrhea. No urgency, frequency, dysuria. No particular swelling or dysfunction of the joints, though she has a generalized sense of malaise and weakness. No focal neurologic complaints are noted. No skin rash. PHYSICAL EXAMINATION: Reveals an afebrile woman. She has been afebrile throughout her day in the hospital. Temp 36.4 right now, respiratory rate 18, blood pressure 129/62, she is saturating 92% on room air. The patient looks tired and weak in general but not acutely ill. Her current BMI is 24.5, and she is in no acute distress certainly. She is fully alert and oriented. She does not have temporal wasting, conjunctivitis, scleral icterus, thrush, hairy leukoplakia or pharyngitis. Her neck is without notable lymph nodes, neither cervical nor supraclavicular. Her lungs have reasonably good air flow with scattered wheezes posteriorly. Cardiac tones: Regular rate and rhythm without notable murmur. Abdomen: Minimal left upper quadrant tenderness at about the area where one would expect to feel a spleen tip, but I do not appreciate any part of her spleen. Right upper quadrant is free of hepatomegaly. There is no ascites, no abdominal masses palpated. She does not have a Richards. Upper extremities without synovitis or restriction of motion. No skin rash. Lower extremities also without synovitis. No significant edema. No rash. Neurologically, the patient is intact. She moves everything but she reports that overall she is weaker than she was at baseline two or three months ago. Remainder of the physical unremarkable. LABORATORIES: Include white count 23,000 yesterday, now 17, platelets 592. Creatinine was 1.25 shortly after admission. It is now down to 0.59. LFTs are normal. Procalcitonin 0.26 on two separate measurements. Urinalysis with 6-10 white cells which is normal for a woman her age not indicative of infection. Cryptoantigen, galactomannan and QuantiFERON Gold are pending. Micro studies include two negative blood cultures on the , a urine culture which is negative to date, and a sputum which has just been sent to the lab. Also just sent to the lab is a MRSA screen, but it is not available yet. We have already reviewed the imaging studies in the discussion of the history of present illness. IMPRESSION: This patient either has a developing lung abscess at the left base or rapidly growing malignancy. My initial gestalt would be this is more likely malignant. The patient has very little in the way of infectious symptoms really, and certainly no notable fevers or chills, and no significant night sweats. She has very little in the way of sputum production and does not really have much pleuritic pain with deep inspiration. Her laboratories do show a leukocytosis, but this could be seen with solid tumors just as easily as a lung abscess. I hope that I am incorrect in this assumption and that she actually does have lung abscess. Most lung abscesses are related to oral anaerobes and streps with Eikenella and the strep milleri playing a role in many cases. Unusual causes of a lung abscess might include tuberculosis, Nocardia, Actino and a host of similar agents as well as possibly fungal causes, though I think that the patient is at fairly minimal risk for these. RECOMMENDATIONS: 1. I would continue with linezolid and Zosyn at least overnight. 2. If the MRSA screen of the nose is negative, we can drop the linezolid. 3. We await the many pending studies including crypto which could be very important as this could all be cryptococcus gattii. Aspergillus antigen is also pending as well as a QuantiFERON Gold. 4. I would definitely involve Pulmonary in this consult to see if they think a bronchoscopy, possibly with transbronchial lung biopsy, is indicated. Bronchoscopy use to be considered required if one was attempting to diagnose a lung abscess, but in these times it is usually not done unless there is specific concern about a concomitant or missed diagnosis of malignancy, and I think it would be reasonable to take a look here and see what Dr. Rubi, this week's pulmonary [employer] consultant, thinks about this mass. SUSY
[2016-09-26] MEDS: Piperacillin-Tazo 3.375 Gm Inj 3.375 GM in Dextrose 5% Minibag Plus 50 ML IV SCH (22:47)
--- NOTE | 2016-09-27 03:22 | NUR ---
Activity/Pain Patient independent in room to & from BR. Gait steady. Denies lightheadedness/dizziness. Receiving 0.5mg Dilaudid IVP with effective results. Given @ HS, per patient request, to help with pain management and sleeping with effective results. Noted to be resting with eyes closed upon reassessment and upon roundings.
[2016-09-27 04:34] VITALS: BP 128/72; PULSE 77; RESP 16; O2SAT 93
[2016-09-27] MEDS: Piperacillin-Tazo 3.375 Gm Inj 3.375 GM in Dextrose 5% Minibag Plus 50 ML IV SCH ×3 (05:48→22:52)
[2016-09-27 07:50] LABS: BASOPHILS % (AUTO) 0.1 % (0-3); EOSINOPHILS % (AUTO) 0 % (0-5); MONOCYTES % (AUTO) 7.9 % (4-12); Mean Corpuscular Volume 87.4 fL (81-100); NEUTROPHILS % (AUTO) 88.2 % (40-74); Platelet Count 560 bil/L (150-400)
[2016-09-27] MEDS: Albuterol-Ipratropium 3 mL Inhalation Solution NEB SCH ×5 (08:10→21:04)
[2016-09-27] MEDS ORDERED: 0.9% Sodium Chloride 250 ML ONE (08:39)
[2016-09-27 08:47] VITALS: PULSE 70; RESP 22; O2SAT 94
[2016-09-27] MEDS: HYDROmorphone 0.5 mg/0.5 mL iSecure Syringe IVPUSH PRN ×3 (08:52→22:02)
--- NOTE | 2016-09-27 09:23 | PCM.PNMED ---
Subjective Date of Service Sep 27, 2016 Subjective Pt notes feeling kind of "down" today but can not state exactly why. Thinks feeling sick for last month is part of the reason. She denies any significant changes overnight however. Still having some SOB and cough but this is stable. Denies fever/chills. Denies chest pain. Some tightness. Exam Vital Signs Vital Sign - Last Date Time Temp Pulse Resp B/P Pulse Ox O2 Delivery O2 Flow Rate FiO2 09/27/16 08:47 70 22 94 Room Air 09/27/16 04:34 37.1 128/72 09/25/16 21:06 2 Intake and Output 09/26/16 09/26/16 09/27/16 Cumulative From/Thru 15:00 23:00 07:00 09/25/16 20:10 - 09/27/16 06:35 Intake Total 573 ml 920 ml 2493 ml Output Total 700 ml 700 ml 2400 ml Balance -127 ml 220 ml 93 ml Intake Oral 200 ml 500 ml 700 ml IV Total 373 ml 420 ml 1793 ml Output Urine Total 700 ml 700 ml 2400 ml # Bowel Movements 0 0 0 General: Alert, Oriented X3, Cooperative, Mild Distress Mouth: Mucous Membr Moist/[place] Chest & Lungs: Chest Wall Normal, Coarse breath sounds Cardiovascular: Regular Rate/Rhythm Abdomen: Non-tender, Non-distended Extremities: No cyanosis/clubbing/edma bilat, Other (I did not appreciate claf pain on palpation. No masses palpable. ) Neurological: Grossly Neurologically Intact IVs and Medications Medications Reviewed: Medications were reviewed in detail Lab and Diagnostics Result Diagram: 09/27/16 0725 09/27/16 0725 Assessment & Plan Ms. Ward is a pleasant 76 year old woman with history of COPD, HTN, and osteoporosis, that presented to [facility] via urgent care for symptoms of abdominal pain. Stat CT abd was unrevealing for abdominal causes, but revealed an increasing in size of LLL pulmonary mass, suspicious for developing abscess. She was admitted for evaluation and treatment of pulmonary abscess. Hospital day one. Lung Mass; Etiology unclear, DDX include pulmonary abscess vs malignancy, acute , present on admission. Under evaluation - CT 09/25/2016 revealed an increasing mass within LLL suspicious for abscess development - Nares (+) for MRSA, blood cultures currently demonstrating no growth - Initially consulted ID, will now consult of pulmonary in addition on Dr. Banuelos's recommendation for further evaluation of this significant condition. - Continue broad coverage, Zosyn + MRSA coverage; change Vanco to Linezolid for reduced kidney impairment, as she is not on SSRIs - AM labs pending, WBC count is stable, slightly downward trending. - Strep pneu Ur, Legionella Ur - Sputum samples pending - Specialized studies: Crypto, TB, galactomannan, aspergillus all still pending. Acute abdominal pain, present on admission. Currently controlled - Pt reports one week history; no changes in bowel or bladder habits - CT on admit did not identify any GI etiology - Likely secondary to LLL mass formation - PRN Dilaudid IV for overnight relief Acute kidney injury, present on admission. Monitored - On admit: Cr 1.25; previous 0.64 in 08/2016 - Received contrast for CT + vanco + zosyn - Monitor COPD with emphysematous changes. Presumed stable - No history chronic oxygen therapy; sx well controlled on home inhalers - Duonebs QIDWA + accunebs q2h prn GI Prophylaxis: H2 jesus VTE Prophylaxis: Sub-Q Heparin (Unfractionated) VTE Mechanical Devices: Intermittant Pneumatic CD Resuscitation Status: CPR: Attempt Resuscitation Time spent 30 minutes Orville Queen DO Sep 27, 2016 09:23
[2016-09-27 10:12] LABS: Cryptococcal Ag Negative (Negative)
[2016-09-27] MEDS: Linezolid Inj 600 MG in IV Premix 1 EACH IV SCH ×2 (10:18→21:38)
[2016-09-27] MEDS ORDERED: Mupirocin 2% 22 Gm Ointment TOPICAL SCH (11:30)
--- NOTE | 2016-09-27 12:04 | PROG NOTE ---
[address] [address] PROGRESS NOTE PATIENT: HERBERT GARCIA : 1940 MR#: [id number] ADMIT: 09/25/2016 JOB ID: [id number] DATE: 09/27/2016 INFECTIOUS DISEASE FOLLOWUP NOTE: REASON FOR FOLLOWUP: Possible lung abscess and/or pulmonary malignancy or both. INTERVAL HISTORY: Overnight, the patient had no fevers, chills, or sweats. She continues to have a minimally productive cough without much shortness of breath, though she has reported some sinus type upper respiratory congestion but no sore throat is associated with that. No diarrhea, nausea, or vomiting. She has had some pain in her left calf overnight, as well as her left foot. PHYSICAL EXAMINATION: Reveals an afebrile woman. Temperature 37.1, pulse 70, blood pressure 128/72, saturating well on room air. She has no skin rash. She is awake, alert and lucid. Oral cavity without pharyngitis. Lungs with decreased breath sounds bilaterally. No focal rales or rhonchi are heard. Abdomen is soft, nontender. Left lower extremity with positive Homans sign but no gross swelling of the left lower extremity. LABORATORIES: Include white count 17,000 down from 23. Platelets are elevated at 560. Creatinine 0.51, which is much improved. LFT basically normal. Procalcitonin staying right around 0.25. Urinalysis, minimal pyuria. Crypto antigen negative. Galactomannan and QuantiFERON Gold pending. The patient's MRSA nasal smear was positive. Sputum shows a few polys and normal aleks. Blood cultures and urine culture are negative. Our CTs noted to expanding pulmonary mass at the left base which may represent abscess, tumor, or both. IMPRESSION: It remains unclear if this patient has a primary pulmonary malignancy or infection or some combination of both. Her left thigh tenderness and questionable Homans sign indicate a need for an ultrasound of the left lower extremity. RECOMMENDATIONS: 1. Will continue with antibiotics. At this point, we are going to go with linezolid and Zosyn because we have a possible lung abscess and MRSA colonization, so will need broad-spectrum coverage. 2. An ultrasound of the left lower extremity ordered. 3. We discussed this case with the Pulmonary team, and they are going to be evaluating the patient today as well. 4. We are going to add some Bactroban to the nares because of the MRSA colonization.
--- NOTE | 2016-09-27 13:12 | DRSVH ---
PROCEDURE: US VEINOUS LEG DUPLEX UNILATERAL, LEFT INDICATIONS: 76 year-old female with left calf tenderness. TECHNIQUE: Real-time imaging, as well as color and pulse Doppler interrogation, were performed of the lower extr emity deep veins from the inguinal ligament to the popliteal fossa. COMPARISON: None. FINDINGS: The deep veins are normally compressible, and free of intraluminal thrombus. Color and pu lse Doppler demonstrate normal phasic intraluminal flow. There is normal augmentation response to di stal compression maneuver. IMPRESSION: No sonographic evidence for left lower extremity deep venous thrombosis. Dictated by: Johnny Bañuelos M.D. on 09/27/2016 at 13:09 Approved by: Johnny Bañuelos M.D. on 09/27/2016 at 13:10
[2016-09-27] MEDS: Mupirocin 2% 22 Gm Ointment NASAL SCH (13:35)
[2016-09-27] MEDS ORDERED: Polyethylene Glycol (PEG) 17 Gm Powder PO PRN (14:25)
--- NOTE | 2016-09-27 14:44 | PCM.PNMED ---
Subjective Date of Service Sep 27, 2016 Subjective PULMONARY CONSULTATION Consult requested by: Dr. Queen for evaluation of lung mass Patient is a 76 year-old female with COPD who went to the ED from urgent care because of midline, sharp chest pain. She was at the ED for the same symptoms a month ago. At that time (08/22/16), CT showed a pulmonary mass that was "suspicious for neoplasm." Patient was not put on antibiotics because it was not thought to be infectious. She followed up with her primary care physician who ordered a PET scan and referred her to oncology. Two days ago (09/25/16), patient again felt the same midline, sharp chest pain. She went to urgent care who took an x-ray. That imaging showed left lower lobe opacity consistent with pneumonia with lung abscess. She was sent to the ED where they performed another chest CT. That CT showed that the left lower lobe mass had enlarged from 4.9 x 3.4 cm to 6.3 x 4.6 cm in a month, and now has a cystic center. Radiological report stated that enlargement rate was "greater than expected for typical neoplasm." Background: Patient is a life-long resident of [place], having been born in [place], raised in [place] and has lived in [place] for 57 years. She has a history of 50 years of smoking, having quit 3 months ago. 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 No recent sick contacts and no known exposure to TB. She owns 2 cats but no other animals and she has never owned any birds. No recent travel. She states compliance with her inhalers and does not need oxygen at home. She has never been intubated. When examined this morning, the patient states that she feels tired and weak, and endorses sharp lower chest pain (pointing to substernal and left anterior rib/LUQ area). She does not think that she is coughing any more than usual but she is bringing up more sputum. Her appetite has not changed and she has been ambulating in her room. 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 Exam Vital Signs Vital Sign - Last Date Time Temp Pulse Resp B/P Pulse Ox O2 Delivery O2 Flow Rate FiO2 09/27/16 08:47 70 22 94 Room Air 09/27/16 04:34 37.1 128/72 09/25/16 21:06 2 Intake and Output 09/26/16 09/26/16 09/27/16 Cumulative From/Thru 15:00 23:00 07:00 09/25/16 20:10 - 09/27/16 06:35 Intake Total 573 ml 920 ml 2493 ml Output Total 700 ml 700 ml 2400 ml Balance -127 ml 220 ml 93 ml Intake Oral 200 ml 500 ml 700 ml IV Total 373 ml 420 ml 1793 ml Output Urine Total 700 ml 700 ml 2400 ml # Bowel Movements 0 0 0 Exam General: AAOx3; pleasant and cooperative, resting in bed HEENT: Atraumatic; sclera anicteric; mucus membranes moist Neck: Supple Cardiac: RRR, no appreciable murmurs, distant heart sounds Pulm: Clear but diminished breath sounds B/L, barrel-chested, no use of accessory muscles, speaking in full sentences Abdomen: Soft, intermittent spastic pain LUQ after adjusting herself in bed Skin: Warm and dry Extremities: No peripheral edema noted Pulses: radial equal and bilateral; posterior tibialis equal and bilateral Neuro: speech without slur; facial expressions equal and symmetric, EOMI Psych: Appropriate mood, affect, and responses to questioning; good insight and judgment IVs and Medications Medications Reviewed: Medications were reviewed in detail Lab and Diagnostics Leukocytosis, 17.1 down from 23.4 Hyponatremia Procalcitonin 0.23 Lactic acid 09/25/16: 1.1 Result Diagram: 09/27/16 0725 09/27/16 0725 Microbiology Microbiology 09/25/16 Blood Culture - Preliminary, Resulted NO GROWTH AFTER 24 HOURS 09/26/16 MRSA (PCR) - Final, Complete POSITIVE Mrsa Positive By Pcr 09/25/16 Urine Culture - Final, Complete No growth (<1,000 organisms/mL) Sputum: normal aleks Serology: Cryptococcus Ag negative A. galactomannan Ag pending TB Pending . X-Rays, CTs and MRIs Date of Service: 09/25/16 CT ABDOMEN AND PELVIS WITH CONTRAST IMPRESSION: 1. Continued interval enlargement of previously noted posterior left lower lobe mass lesion with cystic center, at a rate greater than expected for typical neoplasm. In the setting of fevers, finding is therefore suspicious for pneumonia with lung abscess formation. 2. Bilateral adrenal adenomas as before, larger on the left. 3. Large retrocardiac hiatal hernia. 4. 3.8 cm calcified left uterine fibroid. 5. Nonacute T12 vertebral body anterior wedge compression fracture as before. Dictated by: Johnny Bañuelos M.D. on 09/25/2016 at 17:57 Date of Service: 09/25/16 X-RAY CHEST, TWO VIEWS IMPRESSION: 1. Posterior left lung base opacity corresponds with CT findings of pneumonia with lung abscess. 2. Nonacute T12 vertebral body anterior wedge compression fracture as before. Dictated by: Johnny Bañuelos M.D. on 09/25/2016 at 19:02 . Assessment & Plan 1) Left lower lung mass lesion Mrs. Ward is a pleasant 76 year old woman with history of COPD. Pulmonology was consulted by the hospitalist, Dr. Queen, for evaluation and treatment of pulmonary mass. Two broad differentials for this patient are infectious and neoplastic. In a patient with COPD and a long smoking history, certainly she is at higher risk for lung cancer. However, strongly supporting an infectious etiology is the fact that the mass has enlarged significantly in one month and now contains a cystic center. Patient also has a leukocytosis. I reviewed the imaging with Dr. José, Offensive Coordinator, who concluded that the imaging supports a diagnosis of abscess. A thoracentesis is not indicated in the case of a lung abscess because of the risk of causing a broncho-cutaneous tract that would complicate healing. Dr. José discussed the case with infectious disease , Dr. Banuelos, and recommended use of long-term antibiotics for 6-8 weeks. Follow up with infectious disease as outpatient and possibly pulmonology. If the patient is not improving in a week or two, then further work up should be obtained. Recommendations: 1) 6-8 weeks of antibiotics to be determined by infectious disease 2) Follow up outpatient with infectious disease 3) Consider follow up with a pbx operator 4) Repeat x-ray (CT not needed). If the mass is not resolving, work up for neoplasm. 5) Repeat sputum ordered since patient is coughing up more sputum today Thank you Dr. Queen for involving us in this case. . Resuscitation Status: CPR: Attempt Resuscitation Attending Statement CCM Addendum: Above note reviewed, agreed with plan. 76 yr female admited with LLL lung abscsse, most likely,. leukocytosis resolving to Abx. Underlying COPD, severity ?? Continue AbX for atleast 6-8 wks as per recomendations of ID. Pt. will need OP f /u with a pulmaonologish in 1-2 wks. Will sign off now , please feel free to call if needed. 50 Min of time provided in this patien's care. Jennie Rubi MD Pulm./[facility] copies to: Mesfin Sellers MD, Janice M DO Sep 27, 2016 14:44 Jennie Rubi MD Sep 27, 2016 15:44
[2016-09-27 15:08] VITALS: BP 113/75; PULSE 78; RESP 16; O2SAT 94
[2016-09-27 15:26] VITALS: PULSE 74; RESP 18; O2SAT 95
--- NOTE | 2016-09-27 18:05 | NUR ---
Shortness of Breath Pt complains of difficulty breathing twice this shift. RT called and breathing tx administered VSS, post breathing tx pt reports relief. Bed down and locked call light w/in reach
[2016-09-27 19:26] VITALS: BP 132/78; PULSE 84; RESP 16; O2SAT 92
[2016-09-27 21:04] VITALS: PULSE 70; RESP 16; O2SAT 96
[2016-09-27] MEDS: Fluticasone-Salmererol 250-50 Inhaler INHALATION SCH (21:38)
--- NOTE | 2016-09-28 03:45 | NUR ---
Pain Patient c/o ABD spasms that come and go intermittently. Rating pain 8/10. Administered Dilaudid 0.5mg IVP at bedtime, per patient request, with effective results. Noted to be resting with eyes closed upon reassessment and with each rounding check.
[2016-09-28 04:07] VITALS: BP 120/54; PULSE 81; RESP 16; O2SAT 92
[2016-09-28] MEDS: Piperacillin-Tazo 3.375 Gm Inj 3.375 GM in Dextrose 5% Minibag Plus 50 ML IV SCH ×3 (05:56→21:28)
[2016-09-28 06:23] LABS: BASOPHILS % (AUTO) 0.2 % (0-3); EOSINOPHILS % (AUTO) 0.4 % (0-5); MONOCYTES % (AUTO) 8.4 % (4-12); Mean Corpuscular Hemoglobin 27.9 pg (27.0-35.0); Mean Corpuscular Volume 87.7 fL (81-100); NEUTROPHILS % (AUTO) 85.4 % (40-74); Platelet Count 576 bil/L (150-400)
[2016-09-28] MEDS: Albuterol-Ipratropium 3 mL Inhalation Solution NEB SCH ×3 (08:11→16:15)
[2016-09-28 08:15] VITALS: PULSE 90; RESP 22; O2SAT 92
--- NOTE | 2016-09-28 08:15 | PCM.PNMED ---
Subjective Date of Service Sep 28, 2016 Subjective Pt notes mood/energy level perhaps a little improved today, encouraged by visit from cops yesterday she will eventually recover. Breath is still not overly labored, denies active SOB except with exertion and denies chest pains. Also denies chills. Normal bowel function, tolerating antibiotics without evident side effects. Exam Vital Signs Vital Sign - Last Date Time Temp Pulse Resp B/P Pulse Ox O2 Delivery O2 Flow Rate FiO2 09/28/16 04:07 37.1 81 16 120/54 92 Room Air 09/25/16 21:06 2 Intake and Output 09/27/16 09/27/16 09/28/16 Cumulative From/Thru 14:59 22:59 06:59 09/25/16 20:10 - 09/28/16 06:15 Intake Total 1767 ml 865 ml 5125 ml Output Total 1300 ml 550 ml 4250 ml Balance 467 ml 315 ml 875 ml Intake Oral 1340 ml 440 ml 2480 ml IV Total 427 ml 425 ml 2645 ml Output Urine Total 1300 ml 550 ml 4250 ml # Bowel Movements 0 0 0 Exam General: Alert, Oriented X3, Cooperative, Mild Distress Mouth: Mucous Membr Moist/Pleak Chest & Lungs: Chest Wall Normal, Coarse breath sounds Cardiovascular: Regular Rate/Rhythm Abdomen: Non-tender, Non-distended Extremities: No cyanosis/clubbing/edema bilaterally Neurological: Grossly Neurologically Intact IVs and Medications Medications Reviewed: Medications were reviewed in detail Lab and Diagnostics Result Diagram: 09/28/16 0540 09/28/16 0540 Microbiology Microbiology 09/25/16 Blood Culture - Preliminary, Resulted NO GROWTH AFTER 24 HOURS 09/26/16 MRSA (PCR) - Final, Complete POSITIVE Mrsa Positive By Pcr 09/25/16 Urine Culture - Final, Complete No growth (<1,000 organisms/mL) Sputum: normal aleks Serology: Cryptococcus Ag negative A. galactomannan Ag pending TB Pending . X-Rays, CTs and MRIs Date of Service: 09/25/16 CT ABDOMEN AND PELVIS WITH CONTRAST IMPRESSION: 1. Continued interval enlargement of previously noted posterior left lower lobe mass lesion with cystic center, at a rate greater than expected for typical neoplasm. In the setting of fevers, finding is therefore suspicious for pneumonia with lung abscess formation. 2. Bilateral adrenal adenomas as before, larger on the left. 3. Large retrocardiac hiatal hernia. 4. 3.8 cm calcified left uterine fibroid. 5. Nonacute T12 vertebral body anterior wedge compression fracture as before. Dictated by: Johnny Bañuelos M.D. on 09/25/2016 at 17:57 Date of Service: 09/25/16 X-RAY CHEST, TWO VIEWS IMPRESSION: 1. Posterior left lung base opacity corresponds with CT findings of pneumonia with lung abscess. 2. Nonacute T12 vertebral body anterior wedge compression fracture as before. Dictated by: Johnny Bañuelos M.D. on 09/25/2016 at 19:02 . Assessment & Plan Ms. Ward is a pleasant 76 year old woman with history of COPD, HTN, and osteoporosis, that presented to [facility] via urgent care for symptoms of abdominal pain. Stat CT abd was unrevealing for abdominal causes, but revealed an increasing in size of LLL pulmonary mass, suspicious for developing abscess. She was admitted for evaluation and treatment of pulmonary abscess. Hospital day one. # Lung Mass; Etiology unclear, DDX include pulmonary abscess vs malignancy, acute, present on admission. Under evaluation - CT 09/25/2016 revealed an increasing mass within LLL suspicious for abscess development - Nares (+) for MRSA, blood cultures currently demonstrating no growth - Initially consulted ID, then pulmonary in addition on Dr. Banuelos's recommendation for further evaluation of this significant condition. - Continue broad coverage, Zosyn + MRSA coverage; changed Vanco to Linezolid for reduced kidney impairment, as she is not on SSRIs - Strep pneu Ur, Legionella Ur - Sputum samples pending - WBC still toward trending - Specialized studies: Crypto negatibe while TB, galactomannan, aspergillus all still pending. 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 - Plan for FU as per pulmonogy recs as listed below: "1) 6-8 weeks of antibiotics to be determined by infectious disease 2) Follow up outpatient with infectious disease 3) Consider follow up with a cops 4) Repeat x-ray (CT not needed). If the mass is not resolving, work up for neoplasm. 5) Repeat sputum ordered since patient is coughing up more sputum today" # Acute abdominal pain, present on admission. Currently controlled - Pt reports one week history; no changes in bowel or bladder habits - CT on admit did not identify any GI etiology - Likely secondary to LLL mass formation - PRN Dilaudid IV for relief # Acute kidney injury, present on admission. Monitored - On admit: Cr 1.25; previous 0.64 in 08/2016 - Received contrast for CT + vanco + zosyn - Monitor, now resolved. COPD with emphysematous changes. Presumed stable - No history chronic oxygen therapy; sx well controlled on home inhalers - Duonebs QIDWA + accunebs q2h prn Pain Evaluation: Adequate Pain Control GI Prophylaxis: Not indicated VTE Mechanical Devices: Intermittant Pneumatic CD Resuscitation Status: CPR: Attempt Resuscitation Time spent 25 minutes Orville Queen DO Sep 28, 2016 08:15
[2016-09-28] MEDS: Fluticasone-Salmererol 250-50 Inhaler INHALATION SCH ×2 (08:31→20:10)
[2016-09-28] MEDS: Mupirocin 2% 22 Gm Ointment NASAL SCH ×2 (08:32→20:10)
[2016-09-28] MEDS: Linezolid Inj 600 MG in IV Premix 1 EACH IV SCH ×2 (08:35→20:10)
[2016-09-28] MEDS: HYDROmorphone 0.5 mg/0.5 mL iSecure Syringe IVPUSH PRN ×3 (08:46→22:03)
[2016-09-28 11:35] VITALS: PULSE 74; RESP 18; O2SAT 93
--- NOTE | 2016-09-28 12:11 | PROG NOTE ---
[address] [address] PROGRESS NOTE PATIENT: HERBERT GARCIA : 1940 MR#: [id number] ADMIT: 09/25/2016 JOB ID: [id number] INFECTIOUS DISEASE FOLLOWUP: DATE: 09/28/2016 REASON FOR FOLLOWUP: Probable lung abscess. INTERVAL HISTORY: Overnight, the patient has felt relatively well. She denies any fevers, chills, or sweats. Minimal cough, though she does have baseline shortness of breath on the basis of her COPD. No nausea, vomiting, diarrhea, or skin rash. PHYSICAL EXAMINATION: Reveals an afebrile woman sitting up in no acute distress. Temp 37.1, she has been afebrile since admission. Pulse 90, respiratory rate in the low 20s, blood pressure 120/54, saturating reasonably well on room air. She is in no acute distress. She is lucid. Lungs: Poor air movement which is likely her baseline without focal rales or rhonchi. Abdomen is soft, nontender. No skin rash noted. LABORATORY DATA: Labs include white count drifting down from 23,000 to 12. Platelet count still high at 576. Diff still with some left shift. Creatinine 0.55. Albumin 2.8. Procalcitonin stable at 0.23. Serologic studies include negative crypto antigen, galactomannan and Fungitell are pending. Nasal smear was positive for MRSA and I have asked the lab to take that MRSA and do susceptibilities, especially with respect to clindamycin, as this would be a preferred agent if we believe that she may have MRSA lung abscess. Sputum no growth. Blood cultures, urine cultures negative. IMAGING: Includes the previously discussed scans which reveal what is either lung abscess, malignancy or combination. IMPRESSION: I have discussed this case extensively with Dr. Rubi of Pulmonary. We are in agreement that this is much more likely to represent abscess that cancer as it seems to be responding to antibiotics in terms of declining white count. The optimal antibiotics here are a bit confusing because lung abscesses can include MRSA and we have evidence of MRSA colonization in the nares at least and perhaps MRSA is also a component of the abscess itself. RECOMMENDATIONS: 1. Will continue with linezolid and Zosyn for the next couple days here in the hospital. 2. We are requesting that the lab attempt sub culture the MRSA from the nose and do susceptibility testing. If the MRSA from the nose is susceptible to clindamycin, that would be the obvious oral choice; if not we may be forced to employ more unusual regimen for this lung abscess.
[2016-09-28 14:05] VITALS: BP 118/66; PULSE 92; RESP 16; O2SAT 94
[2016-09-28 16:15] VITALS: PULSE 68; RESP 18; O2SAT 93
[2016-09-28] MEDS ORDERED: 0.9% Sodium Chloride 250 ML ONE (18:11)
[2016-09-28 19:35] VITALS: BP 129/69; PULSE 91; RESP 16; O2SAT 93
[2016-09-28] MEDS: Alum-Mag Hydrox-Simeth 30 mL Suspension PO PRN (21:28)
[2016-09-29] VITALS (8 sets, daily range): BP systolic 126–157; BP diastolic 58–80; PULSE 70–91; RESP 16–22; O2SAT 92–98
--- NOTE | 2016-09-29 03:31 | NUR ---
Activity/Pain Patient up independently in room. Gait steady. Denies lightheadedness/dizziness. States she's starting to feel better. Feels less fatigued than before, and feels like her pain is starting to improve. Received Dilaudid 0.5mg IVP @ HS per request for c/o abdominal pain rated 5/10. Noted to be resting with eyes closed upon reassessment and during hourly rounding.
[2016-09-29] MEDS: Albuterol-Ipratropium 3 mL Inhalation Solution NEB SCH ×4 (04:19→19:58)
[2016-09-29] MEDS: Piperacillin-Tazo 3.375 Gm Inj 3.375 GM in Dextrose 5% Minibag Plus 50 ML IV SCH ×3 (04:31→20:33)
[2016-09-29 06:49] LABS: BASOPHILS % (AUTO) 0.3 % (0-3); EOSINOPHILS % (AUTO) 1.4 % (0-5); MONOCYTES % (AUTO) 9.9 % (4-12); Mean Corpuscular Hemoglobin 27.9 pg (27.0-35.0); Mean Corpuscular Volume 88.1 fL (81-100); NEUTROPHILS % (AUTO) 82.7 % (40-74); Platelet Count 571 bil/L (150-400)
[2016-09-29] MEDS: Fluticasone-Salmererol 250-50 Inhaler INHALATION SCH ×2 (07:35→20:32)
[2016-09-29] MEDS: Mupirocin 2% 22 Gm Ointment NASAL SCH ×2 (07:36→20:32)
[2016-09-29] MEDS: HYDROmorphone 0.5 mg/0.5 mL iSecure Syringe IVPUSH PRN ×3 (07:48→20:33)
[2016-09-29] MEDS: Linezolid Inj 600 MG in IV Premix 1 EACH IV SCH ×2 (07:48→20:33)
[2016-09-29] MEDS: Alum-Mag Hydrox-Simeth 30 mL Suspension PO PRN ×2 (12:14→21:25)
--- NOTE | 2016-09-29 12:56 | PROG NOTE ---
[address] [address] PROGRESS NOTE PATIENT: HERBERT GARCIA : 1940 MR#: [id number] ADMIT: 09/25/2016 JOB ID: [id number] DATE: 09/29/2016 REASON FOR FOLLOWUP: Probable lung abscess. INTERVAL HISTORY: Overnight, the patient has felt fairly well. She still feels a bit weak but no overt fevers or chills. She still has some left pleuritic chest pain and some shortness of breath, especially with movement. She still has a bit of left upper quadrant pain which is likely referred from her lung abscess. No nausea or vomiting. PHYSICAL EXAMINATION: Reveals an afebrile woman. Temp 36.8, pulse 71, respiratory rate 18, blood pressure 125/58, saturating well on room air. No acute distress. Oral cavity negative. Lungs with decreased breath sounds diffusely and especially perhaps at the left base. Cardiac tones without change. Abdomen benign. No skin rash. LABORATORIES: Include white count down to 10,000 and now approaching normal, still with a bit of a left shift. Creatinine 0.5. LFTs are normal. Procalcitonin down to 0.23 a couple days ago. It has not been repeated. QuantiFERON Gold is pending, but the galactomannan has come back negative, as has the crypto antigen. Blood cultures negative. Sputum negative twice. The nasal swab was positive for MRSA, and I have asked for susceptibility testing which will be available on September 30. IMPRESSION: This patient probably has a lung abscess. Initially, we were concerned this could be malignant, but her white count is dropping and the patient is feeling better on antibiotics which strongly reinforces the probable diagnosis of lung abscess. Lung abscesses can be due to MRSA, though it is not common, and we are left with a nasal swab positive for methicillin-resistant Staphylococcus aureus, so I think we are forced to include methicillin-resistant Staphylococcus aureus in our empiric coverage of the lung abscess. RECOMMENDATIONS: 1. Will continue with Zosyn and Zyvox overnight. 2. The patient can probably be discharged tomorrow on oral therapy for her lung abscess. Most lung abscesses are treated without definitive knowledge of the microbiology, and the standard agents are clindamycin or Augmentin. In this case, we do also have to account for the MRSA. If it is sensitive to clindamycin, and this will be known tomorrow, the patient can be discharged on clindamycin 300 mg p.o. four times a day with a plan to go for about three months. 3. If the MRSA is resistant to clindamycin, we may be forced to add a second agent, and one reasonable option would probably be doxycycline plus clindamycin, again with an intention of going three months. 4. If there is ambiguity or confusion about what agent to use for discharge tomorrow, please give me a call, but the easy answer is clindamycin, but only do that if and only if the MRSA is susceptible to clindamycin. 5. I will see the patient in my office on October 11. MTDD
--- NOTE | 2016-09-29 15:51 | PCM.PNMED ---
Subjective Date of Service Sep 29, 2016 Subjective No complaints except general malaise Exam Vital Signs Vital Sign - Last Date Time Temp Pulse Resp B/P Pulse Ox O2 Delivery O2 Flow Rate FiO2 09/29/16 12:33 82 18 98 Room Air 09/29/16 10:29 36.8 126/58 09/25/16 21:06 2 Intake and Output 09/28/16 09/28/16 09/29/16 Cumulative From/Thru 14:59 22:59 06:59 09/25/16 20:10 - 09/29/16 06:27 Intake Total 1906 ml 804 ml 7835 ml Output Total 1950 ml 1200 ml 7400 ml Balance -44 ml -396 ml 435 ml Intake Oral 1430 ml 400 ml 4310 ml IV Total 476 ml 404 ml 3525 ml Output Urine Total 1950 ml 1200 ml 7400 ml # Bowel Movements 0 0 0 Exam General: Alert and oriented, no acute distress Heart: Regular Lungs: Clear Abdomen: Soft, non-tender Extremities: No pedal edema IVs and Medications Medications Reviewed: Medications were reviewed in detail Lab and Diagnostics Result Diagram: 09/29/16 0632 09/29/16 0632 Microbiology Microbiology 09/25/16 Blood Culture - Preliminary, Resulted NO GROWTH AFTER 24 HOURS 09/26/16 MRSA (PCR) - Final, Complete POSITIVE Mrsa Positive By Pcr 09/25/16 Urine Culture - Final, Complete No growth (<1,000 organisms/mL) Sputum: normal aleks Serology: Cryptococcus Ag negative A. galactomannan Ag pending TB Pending . X-Rays, CTs and MRIs Date of Service: 09/25/16 CT ABDOMEN AND PELVIS WITH CONTRAST IMPRESSION: 1. Continued interval enlargement of previously noted posterior left lower lobe mass lesion with cystic center, at a rate greater than expected for typical neoplasm. In the setting of fevers, finding is therefore suspicious for pneumonia with lung abscess formation. 2. Bilateral adrenal adenomas as before, larger on the left. 3. Large retrocardiac hiatal hernia. 4. 3.8 cm calcified left uterine fibroid. 5. Nonacute T12 vertebral body anterior wedge compression fracture as before. Dictated by: Johnny Bañuelos M.D. on 09/25/2016 at 17:57 Date of Service: 09/25/16 X-RAY CHEST, TWO VIEWS IMPRESSION: 1. Posterior left lung base opacity corresponds with CT findings of pneumonia with lung abscess. 2. Nonacute T12 vertebral body anterior wedge compression fracture as before. Dictated by: Johnny Bañuelos M.D. on 09/25/2016 at 19:02 . Assessment & Plan Ms. Ward is a pleasant 76 year old woman with history of COPD, HTN, and osteoporosis, that presented to [facility] via urgent care for symptoms of abdominal pain. Stat CT abd was unrevealing for abdominal causes, but revealed an increasing in size of LLL pulmonary mass, suspicious for developing abscess. She was admitted for evaluation and treatment of pulmonary abscess. # Lung Mass; Etiology unclear, DDX include pulmonary abscess vs malignancy, acute, present on admission. Under evaluation - CT 09/25/2016 revealed an increasing mass within LLL suspicious for abscess development - Nares (+) for MRSA, blood cultures currently demonstrating no growth - Initially consulted ID, then pulmonary in addition on Dr. Banuelos's recommendation for further evaluation of this significant condition. - Initial broad coverage, Zosyn + MRSA coverage; changed Vanco to Linezolid for reduced kidney impairment, as she is not on SSRIs - Strep pneu Ur, Legionella Ur - Sputum samples pending - WBC still toward trending - Specialized studies: Crypto negatibe while TB, galactomannan, aspergillus all still pending. - Per pulmonology radiology findings much supportive of Infective cause, penitentiary antibiotic therapy is most indicated. 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 If the mass is not resolving, work up for neoplasm. 5) Repeat sputum ordered since patient is coughing up more sputum today" Per Dr Banuelos, ID, today: RECOMMENDATIONS: 1. Will continue with Zosyn and Zyvox, or Zosyn and linezolid, overnight. 2. The patient can probably be discharged tomorrow on oral therapy for her lung abscess. Most lung abscesses are treated without definitive knowledge of the microbiology, and the standard agents are clindamycin or Augmentin. In this case, we do also have to account for the MRSA is sensitive to clindamycin, and this will be known tomorrow, the patient can be discharged on clindamycin 300 mg p.o. four times a day with a plan to go for about three months. 3. If the MRSA is resistant to clindamycin, we may be forced to add a second agent, and one reasonable option would probably be doxycycline plus clindamycin, again with an intention of going three months. 4. If there is ambiguity or confusion about what agent to use for discharge tomorrow, please give me a call, but the easy answer is clindamycin, but only do that if and only if the MRSA is susceptible to clindamycin. 5. I will see the patient in my office on October 11. # Acute abdominal pain, present on admission. Currently controlled - Pt reports one week history; no changes in bowel or bladder habits - CT on admit did not identify any GI etiology - Likely secondary to LLL mass formation - PRN Dilaudid IV for relief # Acute kidney injury, present on admission. Monitored - On admit: Cr 1.25; previous 0.64 in 08/2016 - Received contrast for CT + vanco + zosyn - Monitor, now resolved. # COPD with emphysematous changes. Presumed stable - No history chronic oxygen therapy; sx well controlled on home inhalers - Duonebs QIDWA + accunebs q2h prn GI Prophylaxis: Not indicated VTE Mechanical Devices: Intermittant Pneumatic CD Resuscitation Status: CPR: Attempt Resuscitation Zulma Mcmillan MD Sep 29, 2016 15:51
--- NOTE | 2016-09-29 18:00 | NUR ---
Pain Pt is independent in room, only c/o pain x2 this shift, Dilaudid 0.5mg X2 given with good relief. Plan is for pt to go home tomorrow.
--- NOTE | 2016-09-29 18:51 | NUR ---
Social Work: Brief Note Data & Assessment: EMR reviewed. Patient is on her fourth day of hospitalization for Pulmonary abscess and COPD exacerbation per H&P. Patient is not medically ready for discharge. Per EMR documentation on 09/29/[address] Banuelos the patient can probably be discharged tomorrow on oral therapy for her lung abscess. Patient is likely to discharge home no needs. SW will continue to follow and assist patient throughout stay for discharge planning needs. Plan: Patient is likely to discharge home no needs. SW will continue to follow and assist patient throughout stay. Cheryl Falk, LI, ACM
[2016-09-30] MEDS: Piperacillin-Tazo 3.375 Gm Inj 3.375 GM in Dextrose 5% Minibag Plus 50 ML IV SCH (04:58)
[2016-09-30 05:30] VITALS: BP 127/79; PULSE 72; RESP 16; O2SAT 92
--- NOTE | 2016-09-30 05:32 | NUR ---
Pain pt reports LUQ pain at 6/10, Dilaudid IV given x1, not very effective, Tylenol given shortly afterwards, effective, pt denies any further pain for remainder of night.
[2016-09-30] MEDS: Albuterol-Ipratropium 3 mL Inhalation Solution NEB SCH (07:15)
[2016-09-30 07:16] VITALS: PULSE 70; RESP 20; O2SAT 93
[2016-09-30] MEDS: HYDROmorphone 0.5 mg/0.5 mL iSecure Syringe IVPUSH PRN (07:46)
[2016-09-30] MEDS: Fluticasone-Salmererol 250-50 Inhaler INHALATION SCH (07:52)
[2016-09-30] MEDS: Mupirocin 2% 22 Gm Ointment NASAL SCH (09:10)
[2016-09-30] MEDS: Linezolid Inj 600 MG in IV Premix 1 EACH IV SCH (09:12)
--- NOTE | 2016-09-30 10:29 | NUR ---
GLORIA signed by patient CHON Cervantes
--- NOTE | 2016-09-30 10:48 | NUR ---
Social Work-readiness for discharge: Data:EMR Reviewed. Pt is on day 5 of hospitalization for pulmonary abscess per H&P. Pt is not medically stable for discharge anticipate later today or tomorrow. Per RN notes, pt has been up independent in her room. SW followed up with pt at bedside to discuss discharge planning, SW role explained. Pt confirms that she will be returning home at discharge and declines any HH needs. ID MD has placed pt on oral abx for discharge. Pt confirms her will be providing transport home. No anticipated discharge needs. SW will continue to follow if needs arise. Assessment:Pt who is independent at baseline. Plan:Pt to discharge home when medically stable via POV. No anticipated discharge needs. SW will continue to follow if needs arise. CHON Patton
--- NOTE | 2016-09-30 10:50 | PCM.DIMED ---
Discharge Instructions Date of Service Sep 30, 2016 Dates of Hospitalization Sep 25, 2016 at 21:48 Discharge Diagnosis Discharge Diagnosis Lung Abscess Acute Kidney Injury COPD Diet No restrictions Activity No restrictions Call your provider Fever or Chills, Shortness of breath, Chest pain Patient Instructions Follow-up in: 2 weeks (Has appt with Dr Banuelos on October 11) Zulma Mcmillan MD Sep 30, 2016 10:50
[2016-09-30] MEDS ORDERED: CLIN-78 PO (10:56)
[2016-09-30] MEDS ORDERED: OXYC5TAB72 PO (10:56)
--- NOTE | 2016-09-30 11:00 | PCM.DC.MED ---
Discharge Summary Date of Service Sep 30, 2016 Dates of Hospitalization Date of Hospital Admission Sep 25, 2016 at 21:48 Date of Discharge: Sep 30, 2016 Providers: Admitting Physician: Keely Abdi DO Primary Care Physician: Mesfin Sellers MD Attending Physician: Keely Abdi DO Diagnosis at Time of Discharge Diagnosis at Time of Discharge Lung Abscess Acute Kidney Injury COPD Procedures XRay, CTs & MRIs Date of Service: 09/25/16 CT ABDOMEN AND PELVIS WITH CONTRAST IMPRESSION: 1. Continued interval enlargement of previously noted posterior left lower lobe mass lesion with cystic center, at a rate greater than expected for typical neoplasm. In the setting of fevers, finding is therefore suspicious for pneumonia with lung abscess formation. 2. Bilateral adrenal adenomas as before, larger on the left. 3. Large retrocardiac hiatal hernia. 4. 3.8 cm calcified left uterine fibroid. 5. Nonacute T12 vertebral body anterior wedge compression fracture as before. Dictated by: Johnny Bañuelos M.D. on 09/25/2016 at 17:57 Date of Service: 09/25/16 X-RAY CHEST, TWO VIEWS IMPRESSION: 1. Posterior left lung base opacity corresponds with CT findings of pneumonia with lung abscess. 2. Nonacute T12 vertebral body anterior wedge compression fracture as before. Dictated by: Johnny Bañuelos M.D. on 09/25/2016 at 19:02 . Brief History Ms. Ward is a pleasant 76 year old woman with history of COPD, HTN, and osteoporosis, that presented to [facility] via urgent care for symptoms of abdominal pain. Stat CT abd was unrevealing for abdominal causes, but revealed an increasing in size of LLL pulmonary mass, suspicious for developing abscess. She was admitted for evaluation and treatment of pulmonary abscess. Hospital day one. She initially presented to urgent care with a one week history of abdominal pain , located within her LUQ. Pain is sharp, intermittent, worsens with movement and deep inspiration. She cannot correlate any worsening or improvement in symptoms with intake or bowel movements. Denies any associated fever, chills, nausea, vomiting, dysuria, hematuria, edema, headache, unintentional weight loss or weight gain, shortness of breath. She admits to associated fatigue, which she describes as quite severe compared to her baseline activity, as she shares that she can often only participate in activity for about an hour, and then she feels 'wiped.' No acute vision changes, dizziness, unsteady gait. She denies any recent sick contacts, denies any recent illness herself, including any recent flu-like illness or bacterial infections. She states she does have history of PNA, but the episodes were > 1 year ago. She states that she has not traveled out of [facility] within the recent years, and has not traveled to the [place] or [facility]. She has not served in the , and denies any known exposure to TB. Denies any family history of similar, family history of TB. She stopped smoking approximately 3 months ago, with a 50 year history of 0.5ppd. Denies daily/chronic EtOH intake, denies any other substance use. Denies any exposures to asbestos, silicone, construction, but does share she moved into a new manufactured home recently. She does not wear O2 at home. She has a significant family history for breast cancer, with both mother and sister affected. Recent CTA for sharp chest pain 08/22/2016 revealed a lobulated pulmonary mass at left lung base, measuring 4.9x3.4cm, in the presence of severe centrilobular emphysema. Abd CT that was obtained day of this admission 09/25, revealed the LLL mass had increased in size during this interval, measuring 6.3 x 4.6cm with central hypoenhancing region 4.5x4.0cm. In the ED, T36.1, P75, R 15, BP 141/72, 94% room air; initial labs revealed WBC 23.4 with 89 neut, plt 643; Cr 1.25, LFTs within range, PCT 0.26; UA showed large occult blood, many epi cells; blood cultures and urine cultures obtained. Hospital Course Ms. Ward is a pleasant 76 year old woman with history of COPD, HTN, and osteoporosis, that presented to [facility] via urgent care for symptoms of abdominal pain. Stat CT abd was unrevealing for abdominal causes, but revealed an increasing in size of LLL pulmonary mass, suspicious for developing abscess. She was admitted for evaluation and treatment of pulmonary abscess. # Lung abscess - CT 09/25/2016 revealed an increasing mass within LLL suspicious for abscess development - Nares (+) for MRSA screen but culture grew MSSA (which is also sensitive to Clindamycin) - blood cultures no growth - Initially consulted ID, then pulmonary in addition on Dr. Banuelos's recommendation for further evaluation of this significant condition. - Initial broad coverage, Zosyn + MRSA coverage; changed Vanco to Linezolid for reduced kidney impairment, as she is not on SSRIs Per Dr. 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 - Plan for FU as per pulmonogy recs as listed below: "1) 6-8 weeks of antibiotics to be determined by infectious disease 2) Follow up outpatient with infectious disease 3) Consider follow up with a learning design specialist 4) Repeat x-ray (CT not needed). If the mass is not resolving, work up for neoplasm. # Acute abdominal pain, present on admission. Currently controlled - Pt reports one week history; no changes in bowel or bladder habits - CT on admit did not identify any GI etiology - Likely secondary to LLL mass formation - PRN Dilaudid IV for relief, changed to oral oxycodone at the time of discharge # Acute kidney injury, present on admission. Monitored, resolved - On admit: Cr 1.25; previous 0.64 in 08/2016 - Received contrast for CT + vanco + zosyn # COPD with emphysematous changes. Presumed stable - No history chronic oxygen therapy; sx well controlled on home inhalers - Duonebs QIDWA + accunebs q2h prn Exam Vital Signs (Last) Date Time Temp Pulse Resp B/P Pulse Ox O2 Delivery O2 Flow Rate FiO2 09/30/16 07:16 70 20 93 Room Air 09/30/16 05:30 36.6 127/79 09/25/16 21:06 2 Exam General: Alert and oriented, no acute distress Heart: Regular Lungs: Clear Abdomen: Soft, non-tender Extremities: No pedal edema Test 09/25/16 20:40 09/25/16 21:21 09/25/16 21:45 09/26/16 05:40 Lactic Acid Level 1.1mmol/L (0.4-2.0) Troponin T 0.010ug/L (0.0-0.011) Prothrombin Time 11.4sec (8.1-12.5) Prothromb Time International Ratio 1.06ratio Urine Color Straw (YELLOW) Urine Appearance Clear (CLEAR,HAZY) Urine pH 7.5 (5.0-8.0) Urine Specific [place] 1.005 (1.003-1.035) Urine Protein Negativemg/dL (NEG,TRACE) Urine Glucose (UA) Negativemg/dL (NEGATIVE) Urine Ketones 15mg/dL (NEGATIVE) Urine Occult Blood Large (NEGATIVE) Urine Nitrite Negative (NEGATIVE) Urine Bilirubin Negative (NEGATIVE) Urine Urobilinogen Normalmg/dL (NORMAL) Urine Leukocyte Esterase Small (NEGATIVE) Urine RBC 3-10/hpf (0-2) Urine WBC 6-10/hpf (0-5) Urine Epithelial Cells Many/hpf (NONE-MOD) Urine Crystals None seen (NONE SEEN) Urine Bacteria None/hpf (NONE-FEW) Urine Hyaline Casts None/lpf (NONE) Urine Granular Casts None seen (NONE SEEN) Urine Waxy Casts None seen (NONE SEEN) Urine Red Blood Cell Casts None seen (NONE SEEN) Urine White Blood Cell Casts None seen (NONE SEEN) Urine Mucus None seen (None Seen) Urine Trichomonas None seen (NONE SEEN) Urine Yeast None (NONE SEEN) Urine Culture Reflexed Indicated Phosphorus Level 2.9mg/dL (2.5-4.9) Magnesium Level 2.1mg/dL (1.6-2.6) Cryptococcus Antigen Negative (Negative) Aspergillus galactomannan Antigen 0.05Index (0.00-0.49) TB Test (QFT) Gold In Tube Indeterminate (Negative) TB Test (QFT) Incubation Comment (.) TB Test (QFT) Mitogen 0.07IU/mL (.) TB Test (QFT) Antigen 0.03IU/mL (.) TB Test (QFT) Antigen Minus Nil 0.00IU/mL (.) TB Test (QFT) TB - Nil 0.03IU/mL (.) TB Test (QFT) Positive Criteria Comment (.) TB Test (QFT) Interpretation Comment (.) Test 09/27/16 07:25 09/27/16 12:41 09/28/16 05:40 09/28/16 08:43 Procalcitonin 0.23ng/mL (0.00-0.08) Activated Partial Thromboplast Time 32.4sec (22.8-33.0) Total Bilirubin 0.2mg/dL (0.0-1.2) Aspartate Amino Transf (AST/SGOT) 10U/L (0-50) Alanine Aminotransferase (ALT/SGPT) 6U/L (0-32) Alkaline Phosphatase 87U/L (25-165) Total Protein 5.5g/dL (6.4-8.4) Albumin 2.8g/dL (3.4-5.0) Hold Urine Received (Received) Test 09/29/16 06:32 White Blood Count 10.3th/mm3 (3.8-10.1) Red Blood Count 4.12mil/mm3 (3.90-5.20) Hemoglobin 11.5g/dL (12.0-15.6) Hematocrit 36.3% (35.0-46.0) Mean Corpuscular Volume 88.1fL (81-100) Mean Corpuscular Hemoglobin 27.9pg (27.0-35.0) Mean Corpuscular Hemoglobin Concent 31.7% (32.0-37.0) Red Cell Distribution Width 12.6% (12.3-15.4) Platelet Count 571bil/L (150-400) Neutrophils (%) (Auto) 82.7% (40-74) Lymphocytes (%) (Auto) 4.9% (14-46) Monocytes (%) (Auto) 9.9% (4-12) Eosinophils (%) (Auto) 1.4% (0-5) Basophils (%) (Auto) 0.3% (0-3) Sodium Level 138mEq/L (134-144) Potassium Level 3.6mEq/L (3.5-5.2) Chloride Level 98mEq/L (97-108) Carbon Dioxide Level 24mmol/L (18-29) Blood Urea Nitrogen 7mg/dL (8-27) Creatinine 0.50mg/dL (0.57-1.00) Estimat Glomerular Filtration Rate 173mL/min (>59) Glucose Level 144mg/dL (60-99) Calcium Level 8.8mg/dL (8.5-10.1) Microbiology Results Microbiology 09/25/16 Blood Culture - Preliminary, Resulted NO GROWTH AFTER 24 HOURS 09/26/16 MRSA (PCR) - Final, Complete POSITIVE Mrsa Positive By Pcr 09/25/16 Urine Culture - Final, Complete No growth (<1,000 organisms/mL) Sputum: normal aleks Serology: Cryptococcus Ag negative A. galactomannan Ag pending TB Pending . Discharge Medications Discharge Medications Alendronate Sodium (Fosamax) 70 Mg Tablet 70 MG PO WEEKLY (Reported) SUNDAYS Aspirin (Aspirin) 81 Mg Tablet 81 MG PO QAM (Reported) Cholecalciferol (Vitamin D3) (Vitamin D3) 2,000 Unit Tablet 2,000 UNIT PO QAM ( Reported) Clindamycin (Clindamycin) 300 Mg Capsule 300 MG PO QID Prescribed by: STACIE ADHIKARI MD Fluticasone/Salmeterol (Advair 250-50 Diskus) 60 Puff/Inh Disk 1 PUFF IH BID ( Reported) Hydrochlorothiazide (Hydrochlorothiazide) 25 Mg Tablet 25 MG PO QAM (Reported) Levothyroxine (Levothyroxine) 112 Mcg Tablet 112 MCG PO QAM (Reported) Tiotropium [place] (Spiriva) 18 Mcg Cap.w.dev 18 MCG IH QAM (Reported) As needed Albuterol Sulfate (Ventolin HFA Inhaler) 200 Puff/18 Gm Inhaler 1 PUFF INH Q4 PRN PRN For Wheezing (Reported) Calcium Carbonate (Tums) 500 Mg Tab.chew 500 MG PO TID PRN PRN For Dyspepsia or Heartburn (Reported) Ibuprofen (Ibuprofen) 200 Mg Capsule 200-400 MG PO QID PRN PRN For Pain ( Reported) oxyCODONE (oxyCODONE) 5 Mg Tablet 5-10 MG PO Q4H PRN PRN For Pain Prescribed by: STACIE ADHIKARI MD Followup Plan Discharge Diet: No restrictions Discharge Activity: No restrictions Follow-up in: 2 weeks (Has appt with Dr Banuelos on October 11) Stacie Adhikari MD Sep 30, 2016 11:00
--- NOTE | 2016-09-30 11:11 | NUR ---
Social Work-discharge: Data:EMR Reviewed. Pt is on day 5 of hospitalization for pulmonary abscess per H&P. Pt is medically stable for discharge. Pt has been up independent in her room. Pt to return home on oral abx. Pt confirms no discharge needs and pt's family to provide transport home. No discharge needs identified. All updated and agreeable to plan. Assessment:Pt who is independent at baseline. Plan:Pt to discharge home today via POV. No discharge needs identified. All updated and agreeable to plan. CHON Patton
--- NOTE | 2016-09-30 15:45 | NUR ---
Discharge note- Patient complained of left sided abd./flank pain releived with ordered pain med. Up ad joe in room. Discharged to home with and personal belongings.
== END 2016-09-30 11:48 | disposition home or self-care (01) | DRG 178 ==
LOC: SED 20:07 → OSC 21:48
PROVIDERS: ADMIT Internal Medicine; ATTEND Internal Medicine
DX: J85.2 Abscess of lung without pneumonia (principal); N17.9 Acute kidney failure, unspecified; Z79.82 Long term (current) use of aspirin; Z87.891 Personal history of nicotine dependence; J44.9 Chronic obstructive pulmonary disease, unspecified; B95.62 Methicillin resistant Staphylococcus aureus infection as the cause of diseases classified elsewhere; R10.9 Unspecified abdominal pain